=== PATIENT | female | born 1970 | race Caucasian/White ===

== ENCOUNTER 2019-07-27 10:56 | Outpatient (RCR) | payer MEDICAID, SELFPAY ==
--- NOTE | 2019-07-27 12:30 | PTOPEVAL ---
Thank you for referring this patient to [facility]. Please review, sign, date and return this plan of care JEREMIAH. I agree with and certify that the following plan of care is medically necessary. Referring Physician Date Admitting Provider: Attending Provider: Kyrie Goldsmith, Referring Provider: *PT Outpatient Evaluation Start: 07/27/19 11:13 Freq: Status: Active Protocol: Document 07/27/19 11:13 [facility]IN[facility] (Rec: 07/27/19 12:23 [email or web address] [id number]) Therapy Assessment Status Assessment Status Assessment Status Evaluation Evaluation Information Problem Diagnosis thoracic back pain Onset 09/19/18 Subjective Information Pt. reports she developed mid Query Text:As Reported By Patient/ back pain in sep. She reports Family that no paritcular incident started her pain. She describes pain from mid back to the tailbone. She states that she has hx of generalized pain throughout her body. She is uncertain of her goal for therapy at this time. Prior Level of Function Activity Level (Last 3 Months) Hand Dominance Right Activity of Daily Living Ability Independent Indoor/Home Mobility Independent Community Mobility Needs Some Help Stairs Ability Independent Functional Cognition (Planning, Shopping Independent , Taking Medications) Cooking Yes Cleaning Yes Laundry Yes Shopping Yes Driving No Medications Home Meds (Include: OTC, RX, Vitamins, gabapentin Herbals, Dose, Route,and Frequency) Query Text:Home Med Entries Will No Longer Recall From Past Visits. Home Meds Must Be Re-entered With Each Visit. Comments Additional Prior Level of Function Pt. reports pain has gotten Comments worse as of recently. she reports that she is currently using a cane for ambulation. Pain Assessment Timing of Pain Assessment Timing of Pain Assessment Pre-Treatment Pain Scale Pain Scale Used Numeric (1 - 10) Self Report Pain Assessment Upper Back Reported Pain Level 7 Current Pain Intensity 7 Lowest Pain Intensity 6 Greatest Pain Intensity 10 Other Pain Aggravating Factors pt. recalls nothing particular . Pain Behaviors Grimacing,Restless Pain Relief Interventions Used By Joleen
--- NOTE | 2019-08-21 15:45 | PCPTNOTE ---
08/21/19- pt cancelled apt on 08/20/19 secondary to illness. -.
--- NOTE | 2019-09-17 13:40 | PCPTNOTE ---
09/17/19- pt cancelled apt for today.-.
== END 2019-10-01 18:54 | disposition home or self-care (01) ==
LOC: CHSPT 10:56
PROVIDERS: PCP Family Medicine; Visit Provider Family Medicine
DX: M54.6 Pain in thoracic spine (principal)
CPT/HCPCS: 97014; 97110; 97162; 97530; G0283

== ENCOUNTER 2020-02-10 11:39 | Outpatient (CLI) | payer MEDICAID, SELFPAY ==
[2020-02-10 12:56] LABS: Iron 13 ug/dL (50-170); Percent Iron Saturation 3 % (12-57)
== END 2020-02-10 11:40 | disposition home or self-care (01) ==
LOC: CHSLAB 11:41
PROVIDERS: PCP Family Medicine; Visit Provider Family Medicine
DX: D50.9 Iron deficiency anemia, unspecified (principal)
CPT/HCPCS: 36415; 83540; 83550

== ENCOUNTER 2020-02-15 09:01 | Outpatient (RCR) | payer MEDICAID, SELFPAY ==
--- NOTE | 2020-02-26 12:31 | PTOPEVAL ---
Thank you for referring Layne Padilla to [facility]. Please review, sign, date and return this plan of care JEREMIAH. I agree with and certify that the following plan of care is medically necessary. Referring Physician Date Admitting Provider: Attending Provider: Meño Nguyen, MD Referring Provider: *PT Outpatient Evaluation Start: 02/15/20 09:06 Freq: Status: Active Protocol: Document 02/15/20 09:10 [facility] (Rec: 02/15/20 10:08 [facility] [id number]) Therapy Assessment Status Assessment Status Assessment Status Evaluation Outpatient Past Medical History Respiratory History Hx Asthma Yes Gastrointestinal History Hx Gastroesophageal Reflux Disease Yes Musculoskeletal History Hx Fibromyalgia Yes Evaluation Information Problem Diagnosis fibromyalgia Onset 02/09/20 Additional Evaluation Detail NDI = 72% Subjective Information patient reports she is having Query Text:As Reported By Patient/ pain in the neck. she reports Family she is getting dizzy, having headaches, and experiencing ringing in the ears. she reports she has been having these issues off and on last year, and then began having more problems earlier this year. she reports she gets immediate heaches if she leans her head backwards. she reports she has constant pain in the neck. she reports no ntb in the arms. she reports she has worsening symptoms with looking up or down. she reports she is on new pain meds. Prior Level of Function Comments Additional Prior Level of Function prior to all of her pain and Comments symptoms beginning, she reports she was able to draw and play with her grand child. Pain Assessment Timing of Pain Assessment Timing of Pain Assessment Assessment Pain Scale Pain Scale Used Numeric (1 - 10) Self Report Pain Assessment Neck Reported Pain Level 6 Pain Description Aching,Burning,Stabbing, Throbbing Pain Frequency Chronic,Continuous Lowest Pain Intensity 6 Greatest Pain Intensity 10 Pain Score Pain Score 6: Self Report Additional Pain Score Comments patient reports she is
--- NOTE | 2020-04-11 16:52 | PTOPEVAL ---
Thank you for referring Layne Padilla to [facility].? The patient is scheduled to be seen for therapy? ____x/week for ___ weeks. Please review, sign, date and return this plan of care JEREMIAH. I agree with and certify that the following plan of care is medically necessary. Referring Physician Date Admitting Provider: Attending Provider: Meño Nguyen, MD Referring Provider: *PT Outpatient Evaluation Start: 02/15/20 09:06 Freq: Status: Active Protocol: Document 04/11/20 16:12 [facility]IN[facility] (Rec: 04/11/20 16:52 [facility] [id number]) Therapy Assessment Status Assessment Status Assessment Status Re-evaluation Outpatient Past Medical History Respiratory History Hx Asthma Yes Gastrointestinal History Hx Gastroesophageal Reflux Disease Yes Musculoskeletal History Hx Fibromyalgia Yes Evaluation Information Problem Subjective Information Pt. reports she has been Query Text:As Reported By Patient/ unable to attend therapy due Family to covid. She reports that she has less dizziness since beginning therpay, but continues to describe pain in her back and neck. She states that she has been exercising at home, but noted more progress while attending therapy. Pain Assessment Pain Scale Pain Scale Used Numeric (1 - 10) Self Report Pain Assessment Neck Reported Pain Level 5 Pain Score Pain Score 5: Self Report Cervical and Lumbar ROM Cervical ROM Cervical Flexion (0-60) 56 Query Text:Active in Degrees Cervical Extension (0-70) 46 Query Text:Active in Degrees Cervical Lateral Flexion Right (0-50) 23 Query Text:Active in Degrees Cervical Lateral Flexion Left (0-50) 22 Query Text:Active in Degrees Cervical Rotation Right (0-90) 54 Query Text:Active in Degrees Cervical Rotation Left (0-90) 55 Query Text:Active in Degrees Cervical and Lumbar Muscle Testing Cervical Muscle Testing Cervical Flexion 4-Good- Cervical Extension 3 Fair Cervical Lateral Flexion Right 3+Fair+ Cervical Lateral Flexion Left 3+Fair+ Cervical Rotation Left 3+Fair+ Cervical Rotation Right 3+Fair+ Upper Extremity Muscle Strength Testing Scapular/Shoulder Bilateral Scapular Retraction - Middle Trapezius 3+ Fair + Scapular Retraction - Lower Trapezius 3 Fair Shoulder Flexion Strength 4- Good - Shoulder Extension Strength 4 Good Shoulder Abduction Strength 3+ Fair + Shoulder Lateral Rotation Strength 3+ Fair + Palpation Assessment Pa
--- NOTE | 2020-04-19 13:10 | PCPTNOTE ---
patient called and cancelled appt for today. SARAH
--- NOTE | 2020-04-28 16:44 | PCPTNOTE ---
patient cancelled appt today due to babysitting and not being able to get away. SARAH
== END 2020-05-12 08:46 | disposition home or self-care (01) ==
LOC: CHSPT 09:01
PROVIDERS: PCP Family Medicine; Visit Provider Internal Medicine Rheumatology
DX: M79.7 Fibromyalgia (principal)
CPT/HCPCS: 97014; 97110; 97161; G0283

== ENCOUNTER 2020-03-07 15:24 | Outpatient (CLI) | payer MEDICAID, SELFPAY ==
[2020-03-07 15:44] LABS: Basophils Absolute Auto 0.05 K/mm3 (0.00-0.10); Basophils Percent Auto 0.7 % (0.0-1.0); Eosinophils Absolute Auto 0.24 K/mm3 (0.02-0.50); Eosinophils Percent Auto 3.2 % (1.0-6.0); Hematocrit 35.3 % (35.0-49.0); Hemoglobin 10.3 g/dL (12.0-15.0); Immature Granulocyte Absolute 0.02 K/mm3 (0.00-0.00); Immature Granulocyte Percent A 0.3 % (0.0-0.0); Lymphocytes Absolute Auto 2.62 K/mm3 (1.10-4.50); Lymphocytes Percent Auto 34.7 % (18.0-42.0); Mean Corpuscular HGB Conc 29.2 g/dL (32.0-36.0); Mean Corpuscular Hemoglobin 19.8 pg (27.0-31.0); Mean Corpuscular Volume 67.8 fL (78.0-102.0); Mean Platelet Volume 9.5 fl (9.2-11.8); Monocytes Absolute Auto 0.67 K/mm3 (0.10-0.90); Monocytes Percent Auto 8.9 % (2.0-11.0); Neutrophils Percent Auto 52.2 % (50.0-70.0); Platelet Count Result 369 K/mm3 (150-420); Red Blood Count 5.21 M/mm3 (4.20-5.40); Red Cell Distribution Width 26.5 % (11.6-14.4); White Blood Count 7.6 K/mm3 (4.8-10.8)
== END 2020-03-07 15:25 | disposition home or self-care (01) ==
LOC: CHSLAB 15:25
PROVIDERS: PCP Family Medicine; Visit Provider Family Medicine
DX: D50.9 Iron deficiency anemia, unspecified (principal)
CPT/HCPCS: 36415; 85025

== ENCOUNTER 2020-03-23 15:57 | Outpatient (CLI) | payer MEDICAID, SELFPAY ==
[2020-03-23 16:44] LABS: Iron 28 ug/dL (50-170); Percent Iron Saturation 6 % (12-57)
== END 2020-03-23 15:58 | disposition home or self-care (01) ==
LOC: CHSLAB 15:59
PROVIDERS: PCP Family Medicine; Visit Provider Family Medicine
DX: D50.9 Iron deficiency anemia, unspecified (principal)
CPT/HCPCS: 36415; 83540; 83550

== ENCOUNTER 2020-04-13 10:58 | Outpatient (CLI) | payer MEDICAID, SELFPAY ==
[2020-04-13 11:08] LABS: Basophils Absolute Auto 0.07 K/mm3 (0.00-0.10); Basophils Percent Auto 0.7 % (0.0-1.0); Eosinophils Absolute Auto 0.48 K/mm3 (0.02-0.50); Eosinophils Percent Auto 4.7 % (1.0-6.0); Hematocrit 33.3 % (35.0-49.0); Immature Granulocyte Absolute 0.03 K/mm3 (0.00-0.00); Immature Granulocyte Percent A 0.3 % (0.0-0.0); Lymphocytes Absolute Auto 3.19 K/mm3 (1.10-4.50); Lymphocytes Percent Auto 31.4 % (18.0-42.0); Mean Corpuscular Hemoglobin 21.5 pg (27.0-31.0); Mean Corpuscular Volume 71.6 fL (78.0-102.0); Monocytes Percent Auto 9.8 % (2.0-11.0); Neutrophils Absolute Auto 5.4 K/mm3 (1.7-7.2); Neutrophils Percent Auto 53.1 % (50.0-70.0); Platelet Count Result 336 K/mm3 (150-420); Red Blood Count 4.65 M/mm3 (4.20-5.40); Red Cell Distribution Width 25.6 % (11.6-14.4); White Blood Count 10.2 K/mm3 (4.8-10.8)
[2020-04-13 11:58] LABS: Iron 20 ug/dL (50-170); Percent Iron Saturation 5 % (12-57)
== END 2020-04-13 10:59 | disposition home or self-care (01) ==
LOC: CHSLAB 11:00
PROVIDERS: PCP Family Medicine; Visit Provider Family Medicine
DX: D50.9 Iron deficiency anemia, unspecified (principal)
CPT/HCPCS: 36415; 83540; 83550; 85025

== ENCOUNTER 2020-08-17 11:35 | Outpatient (CLI) | payer MEDICAID, SELFPAY ==
--- NOTE | ~2020-08-17 | XR_ITS ---
XR foot RT min 3V DATE: 08/17/2020 12:03 INDICATION: Right foot pain following a fall TECHNIQUE: 4 views COMPARISON: 04/16/2017 right foot FINDINGS: There is moderate plantar and posterior calcaneal enthesopathy. No fracture or dislocation, periosteal reaction or bone destruction is detected. IMPRESSION: Calcaneal enthesopathy No recent fracture or dislocation Reviewed, dictated and finalized at location A. P[employer] DELIV[employer]
== END 2020-08-17 11:36 | disposition home or self-care (01) ==
LOC: CHSIMG 11:38
PROVIDERS: PCP Family Medicine; Visit Provider Family Medicine
DX: S99.921A Unspecified injury of right foot, initial encounter (principal)
CPT/HCPCS: 73630

== ENCOUNTER 2021-03-10 15:36 | Emergency (ER) | payer MEDICAID, SELFPAY ==
[2021-03-10 15:40] VITALS: BP 137/87; PULSE 92; RESP 20; TEMP 37.1; O2SAT 97
--- NOTE | 2021-03-10 15:51 | ED.WOUNDLAC ---
HPI - Wound/Laceration General Chief Complaint: Wound/Laceration Stated Complaint: cut face Source: patient and RN notes reviewed Mode of arrival: ambulatory Limitations: no limitations History of Present Illness HPI narrative: Patient states that she was at home just come in from being outdoors. She coughed hard and when she did she bent forward coughing and struck the towel rack with her face. She has a superficial laceration on her right cheek. Onset (ago): minute(s) (10) Location: face Place: home Context: accidental Associated symptoms: pain Treatments prior to arrival: bandage Related Data Home Medications Medication Instructions Recorded Confirmed albuterol sulfate 2.5 mg INHALATION Q4H PRN 08/21/19 03/10/21 albuterol sulfate [ProAir HFA] 2 puff INHALATION QID PRN 08/21/19 03/10/21 budesonide-formoterol [Symbicort] 2 puff INHALATION Q12H 08/21/19 03/10/21 famotidine 20 mg PO BID 08/21/19 03/10/21 gabapentin 900 mg PO TID 08/21/19 03/10/21 sucralfate [Carafate] 1 g PO QID 08/21/19 03/10/21 Allergies Allergy/AdvReac Type Severity Reaction Status Date / Time cefaclor [From Ceclor] Allergy Rash Verified 02/01/20 15:26 diazepam [From Valium] Allergy Agitated Verified 02/01/20 15:26 duloxetine [From Cymbalta] Allergy Rash Verified 02/01/20 15:26 Review of Systems Review of Systems: All systems reviewed & are unremarkable except as noted in HPI and below PMFSH Past Medical History Medical History Asthma Fibromyalgia Finger amputation, no complication GERD (gastroesophageal reflux disease) Glomus tumor Rheumatoid arthritis Exam Const: General: healthy appearing and no acute distress Nutritional Appearance: well nourished and obese Orientation/consciousness: patient oriented x3 HENMT: Head: normal to inspection Ears: external ears normal Face and sinus: normal facial exam Mouth: Yes moist mucous membranes Eyes: Conjunctivae: conjunctivae normal Pupils: Equal, round and reactive pupils present EOM: EOMs intact bilaterally Neck: Neck: normal visual inspection Resp: Effort & Inspection: normal respiratory effort Auscultation: clear to auscultation bilaterally Cardio: Rate: regular rate Rhythm: regular rhythm GI: GI Palp: Yes Soft to palpation and No Tenderness to palpation present (GI) Auscultation: normal bowel sounds Back/Spine/Pelvis: Cervical Spine: cervical ROM normal Thoracic/Lumbar Spine: thoraco-lumbar ROM normal Skin: General skin exam: normal color Rashes: no rashes Wounds: wounds noted laceration right malar region size (2 cm) Neuro: General: patient oriented x3, moves all extremities and no meningeal signs Speech: normal speech Gait exam (Neuro): Normal gait present Extrem: General: normal to inspection and no clubbing, cyanosis or edema Psych: Appearance: grossly normal and well kempt Mental Status: mental status grossly normal Affect: normal affect Attitude: cooperative Thought content: Yes Normal thought content present Course Vital Signs Vital signs: Vital Signs Temperature 37.1 C 03/10/21 15:40 Pulse Rate 92 03/10/21 15:40 Respiratory Rate 20 03/10/21 15:40 Blood Pressure 137/87 03/10/21 15:40 Pulse Oximetry 97 03/10/21 15:40 Temperature 37.1 C 03/10/21 15:40 Pulse Rate 92 03/10/21 15:40 Respiratory Rate 15 03/10/21 16:01 Blood Pressure 137/87 03/10/21 15:40 Pulse Oximetry 99 03/10/21 16:01 Procedures Laceration Laceration 1: Date: 03/10/21 Site: face Side (If applicable): right Size (cm): 2 Description: linear and clean Depth: simple, single layer Pre-repair: wound explored ====== Skin Level ====== Skin layer closed with: dermabond ====== Subcutaneous Layer ====== ====== Muscle Layer ====== ====== Tendon Layer ====== Discharge Plan Discharge Clinical Impression: Laceration
[2021-03-10 16:01] VITALS: RESP 15; O2SAT 99
[2021-03-10] MEDS: TETANUS,DIPHTHERIA,AC PERTUSSIS ADULT 0.5 ML (ADACEL) IM (16:01)
== END 2021-03-10 16:08 | disposition home or self-care (01) ==
PROVIDERS: Emergency Provider Emergency Medicine; PCP Family Medicine
DX: S01.81XA Laceration without foreign body of other part of head, initial encounter (principal); W22.8XXA Striking against or struck by other objects, initial encounter
CPT/HCPCS: 12011; 90471; 90715; 99282

== ENCOUNTER 2021-04-12 07:25 | Outpatient (CLI) | payer MEDICAID, SELFPAY ==
[2021-04-12 07:43] LABS: Basophils Absolute Auto 0.05 K/mm3 (0.00-0.10); Basophils Percent Auto 0.7 % (0.0-1.0); Eosinophils Absolute Auto 0.12 K/mm3 (0.02-0.50); Eosinophils Percent Auto 1.7 % (1.0-6.0); Hematocrit 28.8 % (35.0-49.0); Immature Granulocyte Absolute 0.01 K/mm3 (0.00-0.00); Immature Granulocyte Percent A 0.1 % (0.0-0.0); Lymphocytes Absolute Auto 1.75 K/mm3 (1.10-4.50); Mean Corpuscular HGB Conc 27.8 g/dL (32.0-36.0); Mean Corpuscular Hemoglobin 18.4 pg (27.0-31.0); Mean Corpuscular Volume 66.2 fL (78.0-102.0); Mean Platelet Volume 9.6 fl (9.2-11.8); Monocytes Absolute Auto 0.54 K/mm3 (0.10-0.90); Monocytes Percent Auto 7.7 % (2.0-11.0); Neutrophils Absolute Auto 4.5 K/mm3 (1.7-7.2); Neutrophils Percent Auto 64.8 % (50.0-70.0); Platelet Count Result 319 K/mm3 (150-420); Red Blood Count 4.35 M/mm3 (4.20-5.40); Red Cell Distribution Width 18.5 % (11.6-14.4)
[2021-04-12 08:16] LABS: Rheumatoid Factor Screen Negative (Negative)
[2021-04-12 08:21] LABS: Alanine Aminotransferase 22 U/L (14-59); Albumin Level 3.2 g/dL (3.4-5.0); Alkaline Phosphatase 68 U/L (46-116); Anion Gap 10 mmol/L (8-16); Aspartate Amino Transferase 14 U/L (15-37); Bilirubin,Total 0.2 mg/dL (0.00-1.00); Blood Urea Nitrogen 10 mg/dL (7-18); Calcium 8.7 mg/dL (8.5-10.1); Carbon Dioxide 28 mmol/L (21-32); Chloride 108 mmol/L (98-108); Creatine Kinase 78 U/L (26-192); Estimated Glomerular Filt Rate 59; Glucose 106 mg/dL (70-99); Iron 13 ug/dL (50-170); Magnesium 1.9 mg/dL (1.8-2.4); Osmolality Calculated 301 mOsm/kg (285-295); Percent Iron Saturation 3 % (12-57); Sodium 146 mmol/L (136-145); Total Protein 6.8 g/dL (6.4-8.2)
[2021-04-14 23:50] LABS: Anti Cyclic Citrullinated Pept <16 Units (<20)
== END 2021-04-12 07:26 | disposition home or self-care (01) ==
LOC: CHSLAB 07:29
PROVIDERS: PCP Family Medicine; Visit Provider Internal Medicine Rheumatology
DX: M19.90 Unspecified osteoarthritis, unspecified site (principal); M79.7 Fibromyalgia; D50.9 Iron deficiency anemia, unspecified
CPT/HCPCS: 36415; 80053; 82550; 83540; 83550; 83735; 85025; 86038; 86039; 86200; 86430

== ENCOUNTER 2021-04-19 07:53 | Outpatient (CLI) | payer MEDICAID, SELFPAY ==
[2021-04-22 05:50] LABS: RNP Antibodies <1.0; SS-A <1.0; SS-B <1.0
[2021-04-22 10:58] LABS: Complement C3 112 mg/dL (83-193)
[2021-04-22 14:22] LABS: Complement Total CH50 >60 U/mL (31-60)
[2021-04-24 23:27] LABS: Histone Antibody <1.0 U (<1.0)
== END 2021-04-19 07:54 | disposition home or self-care (01) ==
LOC: CHSLAB 07:55
PROVIDERS: PCP Family Medicine; Visit Provider Internal Medicine Rheumatology
DX: M25.50 Pain in unspecified joint (principal); R76.8 Other specified abnormal immunological findings in serum
CPT/HCPCS: 36415; 83516; 86160; 86162; 86225; 86235

== ENCOUNTER 2021-06-09 13:56 | Outpatient (CLI) | payer MEDICAID, SELFPAY ==
--- NOTE | ~2021-06-09 | US_ITS ---
US retroperitoneal comp 06/09/2021 14:40 Procedure: Realtime transabdominal ultrasound of the kidneys and bladder. Indication: Urinary incontinence. Comparison: No prior studies for comparison. Findings: Renal echotexture is normal bilaterally without hydronephrosis, contour deforming mass or r enal calculus. The right kidney measures 10.5 cm and left kidney measures 9.5 cm. Bladder within nor mal limits. Prevoid volume 79 cc. No post void residual. Impression: 1: Unremarkable renal ultrasound. No stones, masses or hydronephrosis. Reviewed, dictated and finalized at location B. Impression: 1: Unremarkable renal ultrasound. No stones, masses or hydronephrosis.
--- NOTE | ~2021-06-09 | XR_ITS ---
EXAMINATION: XR lumbar spine 2-3V DATE: 06/09/2021 15:06 INDICATION: Low back pain TECHNIQUE: Anteroposterior and lateral views of the lumbar spine, and cone-down lateral view of the l umbosacral junction were obtained. COMPARISON: 02/12/2018 FINDINGS: There is no fracture, dislocation, or subluxation. The vertebral body heights, alignment, a nd intervertebral disc spaces are normal. Small degenerative osteophytes project from the anterior en dplates of multiple vertebral bodies. IMPRESSION: 1. Mild lumbar spondylosis without acute findings. Reviewed, dictated and finalized at location A.
== END 2021-06-09 13:57 | disposition home or self-care (01) ==
LOC: CHSIMG 13:58
PROVIDERS: PCP Family Medicine; Visit Provider Physician Assistant
DX: M54.50 Low back pain, unspecified (principal); R32 Unspecified urinary incontinence
CPT/HCPCS: 72100; 76770

== ENCOUNTER 2021-06-13 09:05 | Outpatient (CLI) | payer MEDICAID, SELFPAY ==
--- NOTE | ~2021-06-13 | MMUS_ITS ---
EXAMINATION: MM diagnostic eun BI w kenyon, US breast RT limited HISTORY: Right breast lump TECHNIQUE: ML, MLO and craniocaudal 3-D tomosynthesis images of both breasts were performed and synth etic 2-D images were generated. Bilateral rotated lateral cc views. CAD analysis was submitted and in terpreted. High resolution targeted right breast ultrasound is clinical complaint was performed. COMPARISON: None BREAST PARENCHYMAL COMPOSITION: There are scattered areas of fibroglandular density. FINDINGS: MAMMOGRAPHIC FINDINGS: No suspicious mass or architectural distortion, malignant calcification, skin thickening or retractio n is detected. ULTRASOUND: Targeted ultrasound was performed at 7:00 15 cm from the nipple near the lateral chest wall with the patient complains of the lungs. No suspicious mass or shadowing is identified. IMPRESSION: 1. No mammographic evidence of malignancy 2. Routine mammographic screening is recommended BI-RADS Category 1: Negative Reviewed, dictated and finalized at location A. IMPRESSION: 1. No mammographic evidence of malignancy 2. Routine mammographic screening is recommended BI-RADS Category 1: Negative
== END 2021-06-13 09:06 | disposition home or self-care (01) ==
LOC: CHSIMG 09:06
PROVIDERS: PCP Family Medicine; Visit Provider Physician Assistant
DX: N64.4 Mastodynia (principal)
CPT/HCPCS: 76642; 77062; 77066; G0279

== ENCOUNTER 2021-06-20 11:17 | Outpatient (CLI) | payer MEDICAID, SELFPAY ==
[2021-06-20 11:35] LABS: Add Urine Microscopic? NO; Appearance Urine Clear (Clear); Basophils Absolute Auto 0.08 K/mm3 (0.00-0.10); Basophils Percent Auto 1.1 % (0.0-1.0); Bilirubin Urine Negative (Negative); Blood Urine Negative (Negative); Color Urine Light Yellow (Yellow); Eosinophils Absolute Auto 0.04 K/mm3 (0.02-0.50); Eosinophils Percent Auto 0.5 % (1.0-6.0); Glucose Urine UA Negative (Negative); Hematocrit 29.4 % (35.0-49.0); Immature Granulocyte Absolute 0.02 K/mm3 (0.00-0.00); Immature Granulocyte Percent A 0.3 % (0.0-0.0); Ketones Urine Negative (Negative); Leukocyte Esterase Ur Negative (Negative); Lymphocytes Absolute Auto 1.92 K/mm3 (1.10-4.50); Lymphocytes Percent Auto 26.4 % (18.0-42.0); Mean Corpuscular HGB Conc 27.2 g/dL (32.0-36.0); Mean Corpuscular Hemoglobin 17.4 pg (27.0-31.0); Mean Corpuscular Volume 63.8 fL (78.0-102.0); Mean Platelet Volume 9.5 fl (9.2-11.8); Monocytes Absolute Auto 0.65 K/mm3 (0.10-0.90); Monocytes Percent Auto 8.9 % (2.0-11.0); Neutrophils Absolute Auto 4.6 K/mm3 (1.7-7.2); Neutrophils Percent Auto 62.8 % (50.0-70.0); Nitrate Urine Negative (Negative); Platelet Count Result 364 K/mm3 (150-420); Protein Urine Negative (Negative); Red Blood Count 4.61 M/mm3 (4.20-5.40); Red Cell Distribution Width 19.3 % (11.6-14.4); Specific Grav Ur <= 1.005 (1.010-1.020); Urobilinogen Urine 0.2 mg/dL (0.2-1.0); White Blood Count 7.3 K/mm3 (4.8-10.8); pH Urine 6.5 (5.0-8.0)
[2021-06-20 12:44] LABS: CRP 1.5 mg/dL (0.0-0.9); Ferritin 4 ng/mL (8-252); Iron 15 ug/dL (50-170); Percent Iron Saturation 3 % (12-57)
[2021-06-23 04:45] LABS: Albumin 3.9 g/dL (3.8-4.8); Alpha 1 Globulin 0.4 g/dL (0.2-0.3); Alpha 2 Globulin 0.9 g/dL (0.5-0.9); Beta 1 Globulin 0.6 g/dL (0.4-0.6); Gamma Globulin 1.4 g/dL (0.8-1.7); Protein, Total 7.6 g/dL (6.1-8.1)
== END 2021-06-20 11:18 | disposition home or self-care (01) ==
LOC: CHSLAB 11:23
PROVIDERS: PCP Family Medicine; Visit Provider Internal Medicine Rheumatology
DX: D64.9 Anemia, unspecified (principal); R76.8 Other specified abnormal immunological findings in serum; M25.50 Pain in unspecified joint
CPT/HCPCS: 36415; 81003; 82728; 83540; 83550; 84155; 84165; 85025; 86140; 86235

== ENCOUNTER 2021-07-27 10:09 | Outpatient (CLI) | payer MEDICAID, SELFPAY ==
[2021-07-27 10:21] LABS: Basophils Absolute Auto 0.06 K/mm3 (0.00-0.10); Eosinophils Absolute Auto 0.21 K/mm3 (0.02-0.50); Eosinophils Percent Auto 3.4 % (1.0-6.0); Hematocrit 31.7 % (35.0-49.0); Hemoglobin 8.6 g/dL (12.0-15.0); Immature Granulocyte Absolute 0.02 K/mm3 (0.00-0.00); Immature Granulocyte Percent A 0.3 % (0.0-0.0); Lymphocytes Absolute Auto 1.85 K/mm3 (1.10-4.50); Lymphocytes Percent Auto 29.6 % (18.0-42.0); Mean Corpuscular HGB Conc 27.1 g/dL (32.0-36.0); Mean Corpuscular Hemoglobin 18.5 pg (27.0-31.0); Mean Corpuscular Volume 68.2 fL (78.0-102.0); Mean Platelet Volume 9.1 fl (9.2-11.8); Monocytes Absolute Auto 0.65 K/mm3 (0.10-0.90); Monocytes Percent Auto 10.4 % (2.0-11.0); Neutrophils Absolute Auto 3.5 K/mm3 (1.7-7.2); Neutrophils Percent Auto 55.3 % (50.0-70.0); Platelet Count Result 368 K/mm3 (150-420); Red Blood Count 4.65 M/mm3 (4.20-5.40); Red Cell Distribution Width 21.9 % (11.6-14.4); White Blood Count 6.3 K/mm3 (4.8-10.8)
[2021-07-27 11:14] LABS: Alanine Aminotransferase 24 U/L (14-59); Albumin Level 3.4 g/dL (3.4-5.0); Alkaline Phosphatase 81 U/L (46-116); Anion Gap 10 mmol/L (8-16); Aspartate Amino Transferase 17 U/L (15-37); Bilirubin,Total 0.2 mg/dL (0.00-1.00); Blood Urea Nitrogen 9 mg/dL (7-18); Calcium 8.9 mg/dL (8.5-10.1); Carbon Dioxide 29 mmol/L (21-32); Chloride 102 mmol/L (98-108); Estimated Glomerular Filt Rate > 60; Glucose 76 mg/dL (70-99); Iron 13 ug/dL (50-170); Osmolality Calculated 289 mOsm/kg (285-295); Percent Iron Saturation 3 % (12-57); Potassium 4.2 mmol/L (3.5-5.1); Sodium 141 mmol/L (136-145); Total Protein 7.6 g/dL (6.4-8.2)
== END 2021-07-27 10:10 | disposition home or self-care (01) ==
LOC: CHSLAB 10:10
PROVIDERS: PCP Family Medicine; Visit Provider Physician Assistant
DX: D50.9 Iron deficiency anemia, unspecified (principal); R30.0 Dysuria
CPT/HCPCS: 36415; 80053; 83540; 83550; 85025; 87086

== ENCOUNTER 2021-08-14 16:54 | Outpatient (CLI) | payer MEDICAID, SELFPAY ==
[2021-08-14 17:10] LABS: Basophils Absolute Auto 0.05 K/mm3 (0.00-0.10); Basophils Percent Auto 0.6 % (0.0-1.0); Eosinophils Absolute Auto 0.39 K/mm3 (0.02-0.50); Eosinophils Percent Auto 4.4 % (1.0-6.0); Hematocrit 30.9 % (35.0-49.0); Hemoglobin 8.4 g/dL (12.0-15.0); Immature Granulocyte Absolute 0.03 K/mm3 (0.00-0.00); Immature Granulocyte Percent A 0.3 % (0.0-0.0); Lymphocytes Absolute Auto 2.26 K/mm3 (1.10-4.50); Lymphocytes Percent Auto 25.3 % (18.0-42.0); Mean Corpuscular HGB Conc 27.2 g/dL (32.0-36.0); Mean Corpuscular Hemoglobin 18.4 pg (27.0-31.0); Mean Corpuscular Volume 67.6 fL (78.0-102.0); Mean Platelet Volume 9.4 fl (9.2-11.8); Monocytes Absolute Auto 0.81 K/mm3 (0.10-0.90); Monocytes Percent Auto 9.1 % (2.0-11.0); Neutrophils Absolute Auto 5.4 K/mm3 (1.7-7.2); Neutrophils Percent Auto 60.3 % (50.0-70.0); Platelet Count Result 355 K/mm3 (150-420); Red Blood Count 4.57 M/mm3 (4.20-5.40); Red Cell Distribution Width 19.9 % (11.6-14.4)
[2021-08-14 18:29] LABS: Ferritin 5 ng/mL (8-252); Iron 11 ug/dL (50-170); Percent Iron Saturation 2 % (12-57)
== END 2021-08-14 16:55 | disposition home or self-care (01) ==
LOC: CHSLAB 16:56
PROVIDERS: PCP Family Medicine; Visit Provider Physician Assistant
DX: D64.9 Anemia, unspecified (principal)
CPT/HCPCS: 36415; 82728; 83540; 83550; 85025

== ENCOUNTER 2021-09-22 10:32 | Outpatient (CLI) | payer MEDICAID, SELFPAY ==
[2021-09-22 10:57] LABS: Basophils Absolute Auto 0.04 K/mm3 (0.00-0.10); Basophils Percent Auto 0.6 % (0.0-1.0); Eosinophils Percent Auto 1.6 % (1.0-6.0); Hematocrit 25.8 % (35.0-49.0); Hemoglobin 7.1 g/dL (12.0-15.0); Immature Granulocyte Absolute 0.02 K/mm3 (0.00-0.00); Immature Granulocyte Percent A 0.3 % (0.0-0.0); Lymphocytes Absolute Auto 1.74 K/mm3 (1.10-4.50); Lymphocytes Percent Auto 28.2 % (18.0-42.0); Mean Corpuscular HGB Conc 27.5 g/dL (32.0-36.0); Mean Corpuscular Hemoglobin 17.8 pg (27.0-31.0); Mean Corpuscular Volume 64.7 fL (78.0-102.0); Mean Platelet Volume 9.6 fl (9.2-11.8); Monocytes Absolute Auto 0.66 K/mm3 (0.10-0.90); Monocytes Percent Auto 10.7 % (2.0-11.0); Neutrophils Absolute Auto 3.6 K/mm3 (1.7-7.2); Neutrophils Percent Auto 58.6 % (50.0-70.0); Platelet Count Result 335 K/mm3 (150-420); Red Blood Count 3.99 M/mm3 (4.20-5.40); Red Cell Distribution Width 17.5 % (11.6-14.4); White Blood Count 6.2 K/mm3 (4.8-10.8)
[2021-09-22 12:19] LABS: Ferritin 3 ng/mL (8-252); Iron 10 ug/dL (50-170)
== END 2021-09-22 10:33 | disposition home or self-care (01) ==
LOC: CHSLAB 10:43
PROVIDERS: PCP Family Medicine; Visit Provider Family Medicine
DX: D50.9 Iron deficiency anemia, unspecified (principal)
CPT/HCPCS: 36415; 82728; 83540; 85025

== ENCOUNTER 2021-10-03 15:35 | Outpatient (CLI) | payer MEDICAID, SELFPAY ==
[2021-10-03 15:55] LABS: Basophils Absolute Auto 0.07 K/mm3 (0.00-0.10); Basophils Percent Auto 0.9 % (0.0-1.0); Eosinophils Absolute Auto 0.11 K/mm3 (0.02-0.50); Eosinophils Percent Auto 1.4 % (1.0-6.0); Hemoglobin 7.2 g/dL (12.0-15.0); Immature Granulocyte Absolute 0.03 K/mm3 (0.00-0.00); Immature Granulocyte Percent A 0.4 % (0.0-0.0); Lymphocytes Absolute Auto 1.88 K/mm3 (1.10-4.50); Lymphocytes Percent Auto 24.1 % (18.0-42.0); Mean Corpuscular HGB Conc 26.7 g/dL (32.0-36.0); Mean Corpuscular Hemoglobin 17.2 pg (27.0-31.0); Mean Corpuscular Volume 64.4 fL (78.0-102.0); Mean Platelet Volume 9.7 fl (9.2-11.8); Monocytes Absolute Auto 0.85 K/mm3 (0.10-0.90); Monocytes Percent Auto 10.9 % (2.0-11.0); Neutrophils Absolute Auto 4.9 K/mm3 (1.7-7.2); Neutrophils Percent Auto 62.3 % (50.0-70.0); Platelet Count Result 354 K/mm3 (150-420); Red Blood Count 4.19 M/mm3 (4.20-5.40); Red Cell Distribution Width 17.7 % (11.6-14.4); White Blood Count 7.8 K/mm3 (4.8-10.8)
== END 2021-10-03 15:36 | disposition home or self-care (01) ==
LOC: CHSLAB 15:37
PROVIDERS: PCP Family Medicine; Visit Provider Family Medicine
DX: D50.9 Iron deficiency anemia, unspecified (principal)
CPT/HCPCS: 36415; 85025

== ENCOUNTER 2021-12-02 09:07 | Outpatient (CLI) | payer MEDICAID, SELFPAY ==
--- NOTE | ~2021-12-02 | MR_ITS ---
EXAMINATION: MR brain/brain stem wo con DATE: 12/02/2021 09:53 INDICATION: Headache. TECHNIQUE: Multisequence magnetic resonance imaging (MRI) of the brain and brainstem was performed wi thout intravenous contrast. COMPARISON: Brain MRI 02/11/2019 FINDINGS: There are scattered areas of nonspecific increased T2-weighted signal intensity in the cere bral white matter. The pituitary is normal in size. There is no intracranial hemorrhage, acute infarc tion, or abnormal intracranial mass lesion. The ventricles are normal in size. The orbits are normal. There is mild mucosal thickening in the paranasal sinuses. The mastoid air cells are normal. IMPRESSION: 1. Worsened mild nonspecific cerebral white matter disease, which likely represents chronic small ves alberto ischemic disease. Reviewed, dictated and finalized at location A. IMPRESSION: 1. Worsened mild nonspecific cerebral white matter disease, which likely repres ents chronic small vessel ischemic disease.
[2021-12-02 09:58] LABS: Basophils Absolute Auto 0.05 K/mm3 (0.00-0.10); Basophils Percent Auto 0.8 % (0.0-1.0); Eosinophils Absolute Auto 0.01 K/mm3 (0.02-0.50); Eosinophils Percent Auto 0.2 % (1.0-6.0); Hematocrit 31.1 % (35.0-49.0); Hemoglobin 8.4 g/dL (12.0-15.0); Immature Granulocyte Absolute 0.02 K/mm3 (0.00-0.00); Immature Granulocyte Percent A 0.3 % (0.0-0.0); Lymphocytes Absolute Auto 1.49 K/mm3 (1.10-4.50); Mean Corpuscular Hemoglobin 18.4 pg (27.0-31.0); Mean Corpuscular Volume 68.2 fL (78.0-102.0); Monocytes Absolute Auto 0.62 K/mm3 (0.10-0.90); Monocytes Percent Auto 10.4 % (2.0-11.0); Neutrophils Absolute Auto 3.8 K/mm3 (1.7-7.2); Neutrophils Percent Auto 63.3 % (50.0-70.0); Platelet Count Result 358 K/mm3 (150-420); Red Blood Count 4.56 M/mm3 (4.20-5.40); Red Cell Distribution Width 23.3 % (11.6-14.4)
[2021-12-02 10:58] LABS: Folic Acid 5.3 ng/mL (8.6->20); Iron 14 ug/dL (50-170); Percent Iron Saturation 3 % (12-57); Vitamin B12 627 pg/mL (193-986)
== END 2021-12-02 09:08 | disposition home or self-care (01) ==
PROVIDERS: PCP Family Medicine; Visit Provider Family Medicine
DX: D50.9 Iron deficiency anemia, unspecified (principal); R51.9 Headache, unspecified
CPT/HCPCS: 36415; 70551; 82607; 82746; 83540; 83550; 85025

== ENCOUNTER 2022-01-24 14:51 | Emergency (ER) | payer MEDICAID, SELFPAY ==
--- NOTE | ~2022-01-24 | XR_ITS ---
EXAM: XR foot RT min 3V DATE: 01/24/2022 15:20 HISTORY: all over RT foot pain after kicked a concrete block . COMPARISON: 08/17/2020. FINDINGS: Normal mineralization. No fracture or dislocation. No lytic or blastic lesion. Degenerativ e midfoot and first MTP changes. Plantar and Achilles enthesopathy. No erosion or periosteal change. Soft tissues within normal limits. IMPRESSION: No acute osseous finding in the right foot. Reviewed, dictated and finalized at location K.
[2022-01-24 15:00] VITALS: BP 119/94; PULSE 100; RESP 18; TEMP 36.3; O2SAT 100
[2022-01-24 15:01] VITALS: BP 119/94; PULSE 98; TEMP 36.3; O2SAT 100
--- NOTE | 2022-01-24 15:08 | ED.LOWEXIN ---
HPI - Extremity Injury (Lower) General Chief Complaint: Extremity Injury, Lower Stated Complaint: RT Foot injury-pain and numbness Time Seen by Provider: 01/24/22 15:00 Source: patient and RN notes reviewed Mode of arrival: ambulatory Limitations: no limitations History of Present Illness HPI Narrative: patient states that she was walking to her neighbor's house yesterday and tripped and hit her right foot against a concrete block. She says that it hurts to walk on and sometimes has some feelings of numbness and tingling in her toes. complaint: foot injury Onset (ago): day(s) (1) Injury: Right: foot Type of Injury: blunt Place: street/outdoors Severity: moderate Relieving factors: rest Exacerbating factors: weight bearing Context: direct blow and walking Associated symptoms: numbness, tingling and able to partially bear weight Other symptoms: none Treatments prior to arrival: cold therapy Related Data Home Medications Medication Instructions Recorded Confirmed albuterol sulfate 2.5 mg/3 mL 2.5 mg inhalation Q4H PRN 08/21/19 01/24/22 (0.083 %) solution for nebulization Shortness Of Breath albuterol sulfate 90 mcg/actuation 2 puff inhalation QID PRN 08/21/19 01/24/22 aerosol inhaler (ProAir HFA) Shortness Of Breath budesonide-formoterol HFA 160 2 puff inhalation Q12H 08/21/19 01/24/22 mcg-4.5 mcg/actuation aerosol inhaler (Symbicort) famotidine 20 mg tablet 20 mg PO BID 08/21/19 01/24/22 gabapentin 300 mg capsule 900 mg PO TID 08/21/19 01/24/22 sucralfate 1 gram tablet (Carafate) 1 g PO QID 08/21/19 01/24/22 Allergies Allergy/AdvReac Type Severity Reaction Status Date / Time cefaclor [From Ceclor] Allergy Rash Verified 01/24/22 15:13 diazepam [From Valium] Allergy Agitated Verified 01/24/22 15:13 duloxetine [From Cymbalta] Allergy Rash Verified 01/24/22 15:13 Review of Systems Review of Systems: All systems reviewed & are unremarkable except as noted in HPI and below PMFSH Past Medical History Medical History Asthma Fibromyalgia Finger amputation, no complication GERD (gastroesophageal reflux disease) Glomus tumor Rheumatoid arthritis Exam Const: General: healthy appearing, no acute distress and alert Nutritional Appearance: well nourished and obese Orientation/consciousness: patient oriented x3 Limitations: no limitations HENMT: Head: normal to inspection Ears: external ears normal Eyes: Conjunctivae: conjunctivae normal Pupils: Equal, round and reactive pupils present EOM: EOMs intact bilaterally Neck: Neck: normal visual inspection Resp: Effort & Inspection: normal respiratory effort Auscultation: clear to auscultation bilaterally Cardio: Rate: regular rate Rhythm: regular rhythm GI: GI Palp: Yes Soft to palpation Auscultation: normal bowel sounds Back/Spine/Pelvis: Cervical Spine: cervical ROM normal Thoracic/Lumbar Spine: thoraco-lumbar ROM normal Skin: General skin exam: normal color Rashes: no rashes Wounds: no wounds Neuro: General: patient oriented x3, moves all extremities, no focal motor deficits and CN's II-XI intact bilaterally Speech: normal speech Gait exam (Neuro): Normal gait present ( limping gait) Extrem: General: normal exam except as noted Right lower extremity: foot Details: normal capillary refill, tenderness Location: of the dorsal foot Location: medially, toes with normal ROM and vascular exam Details: normal capillary refill; no crepitus Psych: Mental Status: mental status grossly normal Affect: normal affect Attitude: cooperative Course Course Emergency Course: I offered patient a Johnny wrap and she declined also offered injection Toradol for pain and she declined. Vital Signs Vital signs: Vital Signs Temperature 36.3 C L 01/24/22 15:00 Pulse Rate 100 01/24/22 15:00 Respiratory Rate 18 01/24/22 15:00 Blood Pressure 119/94 H 01/24/22 15:00 Pulse Oximetry 100 01/24/22 15
[2022-01-24 15:59] VITALS: BP 124/80; PULSE 98; RESP 20; O2SAT 97
== END 2022-01-24 16:01 | disposition home or self-care (01) ==
PROVIDERS: Emergency Provider Emergency Medicine; PCP Family Medicine
DX: S90.31XA Contusion of right foot, initial encounter (principal); W22.8XXA Striking against or struck by other objects, initial encounter
CPT/HCPCS: 73630; 99283

== ENCOUNTER 2022-02-21 14:13 | Outpatient (CLI) | payer MEDICAID, SELFPAY ==
--- NOTE | ~2022-02-21 | XR_ITS ---
EXAMINATION: XR lumbar spine 2-3V DATE: 02/21/2022 14:37 INDICATION: Low back pain TECHNIQUE: Anteroposterior and lateral views of the lumbar spine, and cone-down lateral view of the l umbosacral junction were obtained. COMPARISON: 06/09/2021 FINDINGS: There is no fracture, dislocation, or subluxation. The vertebral body heights, alignment, a nd intervertebral disc spaces are normal. Small degenerative osteophytes project from the anterior en dplates of multiple vertebral bodies. IMPRESSION: 1. Mild lumbar spondylosis without acute findings or significant interval change. Reviewed, dictated and finalized at location B. IMPRESSION: 1. Mild lumbar spondylosis without acute findings or significant interval ana erazo
== END 2022-02-21 14:14 | disposition home or self-care (01) ==
LOC: CHSIMG 14:16
PROVIDERS: PCP Family Medicine; Visit Provider Family Medicine
DX: M54.50 Low back pain, unspecified (principal)
CPT/HCPCS: 72100

== ENCOUNTER 2022-05-02 08:06 | Outpatient (RCR) | payer MEDICAID, SELFPAY ==
--- NOTE | 2022-05-02 09:09 | PTOPEVAL1 ---
Assessment and note entered by Hue Ham DPT Evaluation Information Assessment Status Evaluation Diagnosis Low back pain Onset 05/01/2022 Subjective Information Pt reports that her R-sided back pain has been going on for most of her life. She reports that she has a curve in her back that she's had since she was younger. She saw an MD who wants to try PT first before a more current MRI. She reports she is frustrated as she feels that she has been dealing with this for a long time and feels no one has been looking too in-depth into her back. She reports she might be looking into a back brace soon. She reports pain waxes and wanes but feels like pain is worsening over time. She cannot think of any specific movements that make pain worse or better. She walks frequently and does exercises still. She reports sleep is greatly affected. She reports she is able to do everything that she usually does but just might have to be slower. She reports that she feels she needs a rest from activities after about 20-30 minutes. She does report some bowel/bladder changes over the last few years as she feels like she cannot control. She does get some numbness/tingling in her R foot occasionally. She reports muscle cramps in her legs. She reports occasional falls due to weakness and ankle pain. She likes to cook and bought a standing desk that she can adjust the height to still cook. Reported Pain Level Pain Score 4: Self Report Assessment PT Clinical Summary Pt presents to physical therapy with elevated/ heightened pain in her low back and demonstrates decreased strength, decreased mobility, antalgic gait, and altered posture. 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 She was provided with an HEP focused on improving mobility and strength within her tolerance. She will benefit from skilled PT to faciliate symptom relief, improve the aforementioned impairments, and return to functional and recreational activities. Plan of Care Interventions Electrical Stimulation,Hot Pack/Cold Pack,Manual Therapy,Neuro Re-education,Patient/Caregiver Educati,Therapeutic Activities,Therapeutic Ex
== END 2022-05-29 13:51 | disposition home or self-care (01) ==
LOC: CHSPT 08:06
PROVIDERS: PCP Family Medicine; Visit Provider Family Medicine
DX: M54.50 Low back pain, unspecified (principal)
CPT/HCPCS: 97110; 97140; 97161

== ENCOUNTER 2022-06-29 13:52 | Outpatient (CLI) | payer MEDICAID, SELFPAY ==
--- NOTE | ~2022-06-29 | MR_ITS ---
EXAMINATION: MR lumbar spine wo con DATE: 06/29/2022 15:22 INDICATION: Chronic low back pain. TECHNIQUE: Magnetic resonance imaging (MRI) of the lumbar spine was performed without intravenous con trast. Sequences included sagittal T2-weighted FSE, sagittal T2-weighted FS FSE, sagittal T1-weighted FSE, and axial T2-weighted FSE. COMPARISON: Lumbar spine radiographs 02/21/22 FINDINGS: Bone alignment is normal. Vertebral body heights and intervertebral disc heights are normal . The distal spinal cord signal intensity is normal. The conus medullaris is at L1-L2. The following disc levels are specifically discussed: L1-L2: The disc does not extend beyond the endplate margin. There is no facet joint osteoarthritis. T here is no neural foraminal stenosis. There is no central canal stenosis. L2-L3: The disc does not extend beyond the endplate margin. There is mild bilateral facet joint osteo arthritis. There is no neural foraminal stenosis. There is no central canal stenosis. L3-L4: The disc does not extend beyond the endplate margin. There is mild bilateral facet joint osteo arthritis. There is no neural foraminal stenosis. There is no central canal stenosis. L4-L5: The disc does not extend beyond the endplate margin. There is mild bilateral facet joint osteo arthritis. There is no neural foraminal stenosis. There is no central canal stenosis. L5-S1: The disc does not extend beyond the endplate margin. There is mild bilateral facet joint osteo arthritis. There is mild right neural foraminal stenosis. There is no central canal stenosis. IMPRESSION: 1. Mild lumbar spondylosis. Reviewed, dictated and finalized at location A. PT DEVELOPER IMPRESSION: 1. Mild lumbar spondylosis.
== END 2022-06-29 13:53 | disposition home or self-care (01) ==
LOC: CHSIMG 13:53
PROVIDERS: PCP Family Medicine; Visit Provider Family Medicine
DX: M54.50 Low back pain, unspecified (principal)
CPT/HCPCS: 72148

== ENCOUNTER 2022-09-20 16:40 | Outpatient (CLI) | payer MEDICARE, MEDICAID, SELFPAY ==
[2022-09-20 16:59] LABS: Basophils Absolute Auto 0.04 K/mm3 (0.00-0.10); Basophils Percent Auto 0.5 % (0.0-1.0); Eosinophils Absolute Auto 0.04 K/mm3 (0.02-0.50); Eosinophils Percent Auto 0.5 % (1.0-6.0); Hematocrit 42.1 % (35.0-49.0); Hemoglobin 14.1 g/dL (12.0-15.0); Immature Granulocyte Absolute 0.03 K/mm3 (0.00-0.00); Immature Granulocyte Percent A 0.4 % (0.0-0.0); Lymphocytes Absolute Auto 2.04 K/mm3 (1.10-4.50); Lymphocytes Percent Auto 26.6 % (18.0-42.0); Mean Corpuscular HGB Conc 33.5 g/dL (32.0-36.0); Mean Corpuscular Hemoglobin 29.9 pg (27.0-31.0); Mean Corpuscular Volume 89.2 fL (78.0-102.0); Mean Platelet Volume 9.7 fl (9.2-11.8); Monocytes Absolute Auto 0.76 K/mm3 (0.10-0.90); Monocytes Percent Auto 9.9 % (2.0-11.0); Neutrophils Absolute Auto 4.8 K/mm3 (1.7-7.2); Neutrophils Percent Auto 62.1 % (50.0-70.0); Platelet Count Result 241 K/mm3 (150-420); Red Blood Count 4.72 M/mm3 (4.20-5.40); Red Cell Distribution Width 12.1 % (11.6-14.4); White Blood Count 7.7 K/mm3 (4.8-10.8)
[2022-09-20 17:28] LABS: Albumin Level 3.7 g/dL (3.4-5.0); Anion Gap 7 mmol/L (8-16); Blood Urea Nitrogen 12 mg/dL (7-18); Carbon Dioxide 32 mmol/L (21-32); Chloride 104 mmol/L (98-108); Estimated Glomerular Filt Rate > 60; Glucose 93 mg/dL (70-99); Osmolality Calculated 295 mOsm/kg (285-295); Phosphorus 6.2 mg/dL (2.6-4.7); Potassium 4.1 mmol/L (3.5-5.1); Sodium 143 mmol/L (136-145)
== END 2022-09-20 16:41 | disposition home or self-care (01) ==
LOC: CHSLAB 16:45
PROVIDERS: PCP Family Medicine; Visit Provider Family Medicine
DX: R60.9 Edema, unspecified (principal)
CPT/HCPCS: 36415; 80069; 85025

== ENCOUNTER 2023-04-16 12:25 | Outpatient (CLI) | payer MEDICARE, SELFPAY ==
[2023-04-16 12:43] LABS: Basophils Absolute Auto 0.04 K/mm3 (0.00-0.10); Basophils Percent Auto 0.6 % (0.0-1.0); Eosinophils Absolute Auto 0.13 K/mm3 (0.02-0.50); Eosinophils Percent Auto 1.9 % (1.0-6.0); Hematocrit 25.5 % (35.0-49.0); Hemoglobin 7.3 g/dL (12.0-15.0); Immature Granulocyte Absolute 0.03 K/mm3 (0.00-0.00); Immature Granulocyte Percent A 0.4 % (0.0-0.0); Lymphocytes Absolute Auto 1.64 K/mm3 (1.10-4.50); Lymphocytes Percent Auto 24.1 % (18.0-42.0); Mean Corpuscular HGB Conc 28.6 g/dL (32.0-36.0); Mean Corpuscular Hemoglobin 20.2 pg (27.0-31.0); Mean Corpuscular Volume 70.4 fL (78.0-102.0); Mean Platelet Volume 9.4 fl (9.2-11.8); Monocytes Absolute Auto 0.66 K/mm3 (0.10-0.90); Monocytes Percent Auto 9.7 % (2.0-11.0); Neutrophils Absolute Auto 4.3 K/mm3 (1.7-7.2); Neutrophils Percent Auto 63.3 % (50.0-70.0); Platelet Count Result 275 K/mm3 (150-420); Red Blood Count 3.62 M/mm3 (4.20-5.40); Red Cell Distribution Width 16.9 % (11.6-14.4); White Blood Count 6.8 K/mm3 (4.8-10.8)
[2023-04-16 13:34] LABS: Hemoglobin A1C 5.7 % (<5.7)
[2023-04-16 13:37] LABS: Alanine Aminotransferase 28 U/L (14-59); Albumin Level 3.2 g/dL (3.4-5.0); Alkaline Phosphatase 70 U/L (46-116); Anion Gap 6 mmol/L (8-16); Aspartate Amino Transferase 14 U/L (15-37); Bilirubin,Total 0.2 mg/dL (0.00-1.00); Blood Urea Nitrogen 11 mg/dL (7-18); Calcium 8.9 mg/dL (8.5-10.1); Carbon Dioxide 32 mmol/L (21-32); Chloride 103 mmol/L (98-108); Cholesterol 151 mg/dL (0-200); Estimated Glomerular Filt Rate > 60; Glucose 99 mg/dL (70-99); HDL Direct 44 mg/dL (40-60); Iron 15 ug/dL (50-170); LDL Cholesterol Calculated 92 mg/dL (<130); Osmolality Calculated 291 mOsm/kg (285-295); Percent Iron Saturation 4 % (12-57); Sodium 141 mmol/L (136-145); Total Protein 6.6 g/dL (6.4-8.2); Triglycerides 74 mg/dL (0-150)
== END 2023-04-16 12:26 | disposition home or self-care (01) ==
PROVIDERS: PCP Family Medicine; Visit Provider Family Medicine
DX: D50.9 Iron deficiency anemia, unspecified (principal); E78.5 Hyperlipidemia, unspecified; R73.01 Impaired fasting glucose
CPT/HCPCS: 36415; 80053; 80061; 83036; 83540; 83550; 85025

== ENCOUNTER 2023-05-21 07:50 | Outpatient (CLI) | payer MEDICARE, SELFPAY ==
[2023-05-21 08:12] LABS: Basophils Absolute Auto 0.06 K/mm3 (0.00-0.10); Basophils Percent Auto 1.1 % (0.0-1.0); Eosinophils Absolute Auto 0.02 K/mm3 (0.02-0.50); Eosinophils Percent Auto 0.4 % (1.0-6.0); Hematocrit 26.4 % (35.0-49.0); Hemoglobin 7.3 g/dL (12.0-15.0); Immature Granulocyte Absolute 0.02 K/mm3 (0.00-0.00); Immature Granulocyte Percent A 0.4 % (0.0-0.0); Immature Platelet Fraction Pct 3.2 % (1.0-7.0); Immature Reticulocyte Fraction 26.1 % (2.0-16.52); Lymphocytes Absolute Auto 1.27 K/mm3 (1.10-4.50); Lymphocytes Percent Auto 22.5 % (18.0-42.0); Mean Corpuscular HGB Conc 27.7 g/dL (32.0-36.0); Mean Corpuscular Hemoglobin 18.2 pg (27.0-31.0); Mean Corpuscular Volume 65.7 fL (78.0-102.0); Mean Platelet Volume 9.8 fl (9.2-11.8); Monocytes Absolute Auto 0.58 K/mm3 (0.10-0.90); Monocytes Percent Auto 10.3 % (2.0-11.0); Neutrophils Absolute Auto 3.7 K/mm3 (1.7-7.2); Neutrophils Percent Auto 65.3 % (50.0-70.0); Platelet Count Result 283 K/mm3 (150-420); Red Blood Count 4.02 M/mm3 (4.20-5.40); Red Cell Distribution Width 17.9 % (11.6-14.4); Reticulocyte Percent 1.82 % (0.50-1.50); Reticulocytes Absolute 0.07 M/mm3 (0.02-0.1); White Blood Count 5.7 K/mm3 (4.8-10.8)
[2023-05-21 09:21] LABS: Ferritin 4 ng/mL (8-252); Folic Acid 6.5 ng/mL (8.6->20); Iron 11 ug/dL (50-170); Percent Iron Saturation 2 % (12-57); Vitamin B12 469 pg/mL (193-986)
== END 2023-05-21 07:51 | disposition home or self-care (01) ==
PROVIDERS: PCP Family Medicine; Visit Provider Family Medicine
DX: D50.9 Iron deficiency anemia, unspecified (principal)
CPT/HCPCS: 36415; 82607; 82728; 82746; 83540; 83550; 85025; 85046; 85055

== ENCOUNTER 2023-07-02 10:10 | Outpatient (CLI) | payer MEDICARE, MEDICAID, SELFPAY ==
--- NOTE | ~2023-07-02 | XR_ITS ---
EXAMINATION: XR shoulder RT min 2V DATE: 07/02/2023 11:06 INDICATION: Right shoulder pain. Fall. TECHNIQUE: 4 views of right shoulder were obtained. COMPARISON: None. FINDINGS: Bone alignment is normal. No fracture. There is mild osteoarthritis of glenohumeral joint a nd acromioclavicular joint. IMPRESSION: 1. Mild polyarticular osteoarthritis. Reviewed, dictated and finalized at location A. PHYSICIAN
--- NOTE | ~2023-07-02 | XR_ITS ---
XR hip LT min 2V DATE: 07/02/2023 11:06 INDICATION: Lateral left hip pain TECHNIQUE: AP and lateral views of left hip COMPARISON: None FINDINGS: The pubic symphysis and left sacroiliac joint are intact. No fracture or dislocation, avascular necrosis or bone destruction of the left hip. Left hip joint sp gustavo appears well preserved. IMPRESSION: Negative Reviewed, dictated and finalized at location L. ALT PAVER IMPRESSION: Negative
--- NOTE | ~2023-07-02 | XR_ITS ---
XR wrist RT min 3V DATE: 07/02/2023 11:07 INDICATION: Fall 3 days ago. Right wrist numbness. TECHNIQUE: 4 views COMPARISON: None FINDINGS: There is mild osteoarthritis at the first carpometacarpal joint. No fracture or dislocation, periosteal reaction or bone destruction, erosive change or chondrocalcino sis is detected. IMPRESSION: Mild osteoarthritis Reviewed, dictated and finalized at location L. SERVICER IMPRESSION: Mild osteoarthritis
== END 2023-07-02 10:11 | disposition home or self-care (01) ==
PROVIDERS: PCP Family Medicine; Visit Provider Family Medicine
DX: S49.91XA Unspecified injury of right shoulder and upper arm, initial encounter (principal); S69.91XA Unspecified injury of right wrist, hand and finger(s), initial encounter; M25.552 Pain in left hip; M19.031 Primary osteoarthritis, right wrist
CPT/HCPCS: 73030; 73110; 73502

== ENCOUNTER 2023-07-05 07:16 | Outpatient (CLI) | payer MEDICARE, SELFPAY ==
[2023-07-05 07:43] LABS: Prothrombin Time 10.8 Seconds (9.50-12.10)
== END 2023-07-05 07:17 | disposition home or self-care (01) ==
LOC: CHSLAB 07:18
PROVIDERS: PCP Family Medicine; Visit Provider Internal Medicine Rheumatology
DX: R79.1 Abnormal coagulation profile (principal)
CPT/HCPCS: 36415; 85610

== ENCOUNTER 2023-08-14 10:23 | Outpatient (CLI) | payer MEDICARE, SELFPAY ==
[2023-08-14 10:35] LABS: Appearance Urine Clear (Clear); Bilirubin Urine Negative (Negative); Blood Urine Negative (Negative); Color Urine Light Yellow (Yellow); Glucose Urine UA Negative (Negative); Ketones Urine Negative (Negative); Leukocyte Esterase Ur Negative (Negative); Nitrate Urine Negative (Negative); Protein Urine Negative (Negative); Specific Grav Ur <= 1.005 (1.010-1.020); Urobilinogen Urine 0.2 mg/dL (0.2-1.0)
[2023-08-14 10:39] LABS: Add Urine Microscopic? NO
== END 2023-08-14 10:24 | disposition home or self-care (01) ==
LOC: CHSLAB 10:25
PROVIDERS: PCP Family Medicine; Visit Provider Family Medicine
DX: R30.0 Dysuria (principal)
CPT/HCPCS: 81003; 87086

== ENCOUNTER 2023-08-21 12:40 | Outpatient (CLI) | payer MEDICARE, MEDICAID, SELFPAY ==
--- NOTE | ~2023-08-21 | XR_ITS ---
EXAMINATION: XR hand RT min 3V DATE: 08/21/2023 13:02 INDICATION: Right hand injury and pain. TECHNIQUE: 3 views of right hand were obtained. COMPARISON: Right wrist radiographs 07/02/2023 FINDINGS: Bone alignment is normal. No acute fracture. There is an old healed fracture of diaphysis o f fifth metacarpal. There is mild osteoarthritis of triscaphe joint, first carpometacarpal joint, and some of the interphalangeal joints. IMPRESSION: 1. Mild polyarticular osteoarthritis. Reviewed, dictated and finalized at location E. R TAXI FERRY OPERATOR
== END 2023-08-21 12:41 | disposition home or self-care (01) ==
LOC: CHSIMG 12:42
PROVIDERS: PCP Family Medicine; Visit Provider Family Medicine
DX: S69.91XA Unspecified injury of right wrist, hand and finger(s), initial encounter (principal); M19.041 Primary osteoarthritis, right hand
CPT/HCPCS: 73130

== ENCOUNTER 2023-09-06 23:15 | Emergency (ER) | payer MEDICARE, MEDICAID, SELFPAY ==
[2023-09-06 23:15] VITALS: BP 135/90; PULSE 83; RESP 20; TEMP 36; O2SAT 98
--- NOTE | 2023-09-06 23:27 | ED.DENTAL ---
HPI - Dental/Oral General Stated complaint: tooth pain Time Seen by Provider: 09/06/23 23:26 Source: patient Mode of arrival: ambulatory Limitations: no limitations History of Present Illness HPI Narrative: 53 YEARS OLD WHITE FEMALE HAVE EXTENSIVE DENTAL DECAY ALL OVER, CLAIMING 1 OF THE TOOTH GOT BROKEN OR CHIPPED OF FEW HOURS AGO CAUSING PAIN. PATIENT CURRENTLY ON AMOXICILLIN FOR UPPER RESPIRATORY INFECTION. PATIENT CLAIMING HAVING PEPTIC ULCER DISEASE AND CANNOT TAKE NSAID. PATIENT WAS SEEN NUMEROUS OF TIME BEFORE WITH THE DENTIST WHO REFERRED HER TO ORAL SURGEON WITHOUT SUCCESS Related Data Home Medications Medication Instructions Recorded Confirmed albuterol sulfate 2.5 mg/3 mL 2.5 mg inhalation Q4H PRN 08/21/19 01/24/22 (0.083 %) solution for nebulization Shortness Of Breath albuterol sulfate 90 mcg/actuation 2 puff inhalation QID PRN 08/21/19 01/24/22 aerosol inhaler (ProAir HFA) Shortness Of Breath budesonide-formoterol HFA 160 2 puff inhalation Q12H 08/21/19 01/24/22 mcg-4.5 mcg/actuation aerosol inhaler (Symbicort) famotidine 20 mg tablet 20 mg PO BID 08/21/19 01/24/22 gabapentin 300 mg capsule 900 mg PO TID 08/21/19 01/24/22 sucralfate 1 gram tablet (Carafate) 1 g PO QID 08/21/19 01/24/22 Allergies Allergy/AdvReac Type Severity Reaction Status Date / Time cefaclor [From Ceclor] Allergy Rash Verified 01/24/22 15:13 diazepam [From Valium] Allergy Agitated Verified 01/24/22 15:13 duloxetine [From Cymbalta] Allergy Rash Verified 01/24/22 15:13 Review of Systems Review of Systems: All systems reviewed & are unremarkable except as noted in HPI and below PMFSH Past Medical History Medical History Asthma Fibromyalgia Finger amputation, no complication GERD (gastroesophageal reflux disease) Glomus tumor Rheumatoid arthritis Exam Narrative: GENERAL APPEARANCE: WELL-DEVELOPED, WELL-NOURISHED SKIN: NORMAL COLOR HEAD: NORMOCEPHALIC, NONTRAUMATIC EYES: CLEAR CONJUNCTIVA ENT: OROPHARYNX NORMAL, EARS NORMAL, NOSE NORMAL, EXTENSIVE DENTAL DECAY ALL OVER, BASICALLY BLACK ROOTS OF THE TEETH, ACTUALLY THERE IS NO TEETH, PATIENT CLAIMING 1 OF THE ROOT GOT CHIPPED OFF WHICH I COULD NOT DIFFERENTIATE BETWEEN THAT ROOT AND OTHER ROOTES. NEUROLOGIC: ALERT AND ORIENTED ?3, DIRECTOR OF THE BIOPHYSICS FACILITY IS NORMAL TESTED, NO GROSS MOTOR DEFICIT Course Vital Signs Vital signs: Vital Signs Temperature 36.0 C L 09/06/23 23:15 Pulse Rate 83 09/06/23 23:15 Respiratory Rate 20 09/06/23 23:15 Blood Pressure 135/90 09/06/23 23:15 Pulse Oximetry 98 09/06/23 23:15 Oxygen Delivery Room Air 09/06/23 23:15 Temperature 36.0 C L 09/06/23 23:15 Pulse Rate 83 09/06/23 23:15 Respiratory Rate 09/06/23 23:15 Blood Pressure 135/90 09/06/23 23:15 Pulse Oximetry 98 09/06/23 23:15 Oxygen Delivery Room Air 09/06/23 23:15 MDM - Dental/Oral MDM Narrative Medical decision making narrative: PATIENT HAVE EXTENT DENTAL DECAY ALL OVER, NO TEETH, BLACK DENTAL ROOTS. IN THE ED PATIENT RECEIVED 1 TABLET OF IBUPROFEN 1 TABLET OF NORCO AND WAS DISCHARGED ON HOME ON OMEPRAZOL PRESCRIPTION AND IBUPROFEN. NO NEED FOR ANTIBIOTIC. THERE IS NO INFECTION, PATIENT DOES HAVE AMOXICILLIN AT HOME AT THIS TIME Critical Care Time Critical Care Time Critical Care Time: No Discharge Plan Discharge Clinical Impression: Tooth caries Patient Disposition: Home, Self-Care Condition: Stable Instructions: Toothache (ED) Additional Instructions: SEE A DENTIST WITHIN 3-5 DAYS, MOUTH GUM NEEDED Prescriptions: New omeprazole 20 mg capsule,delayed release(
[2023-09-07] MEDS: IBUPROFEN 600 MG TABLET PO (00:05)
[2023-09-07] MEDS: HYDROcodone/acetaminophen (*CRX) 5-325 MG TABLET 1 TAB PO (00:06)
== END 2023-09-07 00:15 | disposition home or self-care (01) ==
LOC: CHSED 23:45
PROVIDERS: Emergency Provider Emergency Medicine; PCP Family Medicine
DX: K02.9 Dental caries, unspecified (principal); J45.909 Unspecified asthma, uncomplicated; M79.7 Fibromyalgia; M06.9 Rheumatoid arthritis, unspecified
CPT/HCPCS: 99283; A9270

== ENCOUNTER 2023-09-11 15:25 | Outpatient (CLI) | payer MEDICARE, SELFPAY ==
[2023-09-11 15:39] LABS: Basophils Absolute Auto 0.03 K/mm3 (0.00-0.10); Basophils Percent Auto 0.3 % (0.0-1.0); Eosinophils Absolute Auto 0.33 K/mm3 (0.02-0.50); Eosinophils Percent Auto 3.4 % (1.0-6.0); Hematocrit 33.6 % (35.0-49.0); Hemoglobin 10.2 g/dL (12.0-15.0); Immature Granulocyte Absolute 0.03 K/mm3 (0.00-0.00); Immature Granulocyte Percent A 0.3 % (0.0-0.0); Lymphocytes Percent Auto 23.9 % (18.0-42.0); Mean Corpuscular HGB Conc 30.4 g/dL (32.0-36.0); Mean Corpuscular Hemoglobin 23.4 pg (27.0-31.0); Mean Corpuscular Volume 77.1 fL (78.0-102.0); Mean Platelet Volume 8.8 fl (9.2-11.8); Monocytes Absolute Auto 0.64 K/mm3 (0.10-0.90); Monocytes Percent Auto 6.7 % (2.0-11.0); Neutrophils Absolute Auto 6.3 K/mm3 (1.7-7.2); Neutrophils Percent Auto 65.4 % (50.0-70.0); Platelet Count Result 349 K/mm3 (150-420); Red Blood Count 4.36 M/mm3 (4.20-5.40); Red Cell Distribution Width 15.5 % (11.6-14.4); White Blood Count 9.6 K/mm3 (4.8-10.8)
[2023-09-11 15:48] LABS: Hemoglobin A1C 5.3 % (<5.7)
[2023-09-11 16:27] LABS: Alanine Aminotransferase 29 U/L (14-59); Albumin Level 3.2 g/dL (3.4-5.0); Alkaline Phosphatase 67 U/L (46-116); Anion Gap 8 mmol/L (8-16); Aspartate Amino Transferase 17 U/L (15-37); Bilirubin,Total 0.1 mg/dL (0.00-1.00); Blood Urea Nitrogen 14 mg/dL (7-18); Calcium 8.9 mg/dL (8.5-10.1); Carbon Dioxide 33 mmol/L (21-32); Chloride 102 mmol/L (98-108); Cholesterol 201 mg/dL (0-200); Estimated Glomerular Filt Rate > 60; Ferritin 12 ng/mL (8-252); Glucose 105 mg/dL (70-99); HDL Direct 52 mg/dL (40-60); Iron 15 ug/dL (50-170); LDL Cholesterol Calculated 116 mg/dL (<130); Osmolality Calculated 296 mOsm/kg (285-295); Percent Iron Saturation 4 % (12-57); Potassium 4.3 mmol/L (3.5-5.1); Sodium 143 mmol/L (136-145); Total Protein 6.8 g/dL (6.4-8.2); Triglycerides 167 mg/dL (0-150)
== END 2023-09-11 15:26 | disposition home or self-care (01) ==
LOC: CHSLAB 15:28
PROVIDERS: PCP Family Medicine; Visit Provider Physician Assistant
DX: D50.9 Iron deficiency anemia, unspecified (principal); E78.5 Hyperlipidemia, unspecified; R73.01 Impaired fasting glucose
CPT/HCPCS: 36415; 80053; 80061; 82728; 83036; 83540; 83550; 85025

== ENCOUNTER 2023-10-01 15:19 | Outpatient (CLI) | payer MEDICARE, MEDICAID, SELFPAY ==
--- NOTE | ~2023-10-01 | XR_ITS ---
XR shoulder RT min 2V DATE: 10/01/2023 15:47 INDICATION: Patient fell a few weeks ago. Right arm, shoulder pain TECHNIQUE: 5 views COMPARISON: None FINDINGS: No fracture or dislocation, periosteal reaction or bone destruction. Normal alignment at th e malathi clavicular and glenohumeral joints. IMPRESSION: No significant abnormality Reviewed, dictated and finalized at location L. TECHNICIAN IMPRESSION: No significant abnormality
--- NOTE | ~2023-10-01 | XR_ITS ---
XR_CERV2-3V_CR DATE: 10/01/2023 15:47 INDICATION: Patient fell a few weeks ago. Neck pain radiating to right arm. TECHNIQUE: AP, open-mouth, lateral views COMPARISON: None FINDINGS: There is straightening of the cervical spine which may be due to muscle spasm. There is mil d cervical dextroscoliosis. C1 and C2 are normally aligned and the odontoid process is intact. No fracture or dislocation or locked facet or prevertebral soft tissue swelling. There is mild loss of interspace height at C4-5. There is minimal anterolisthesis and mild anterior s purring at C5-6. Moderate degenerative disc disease at C6-7. IMPRESSION: Straightening and mild dextroscoliosis of the cervical spine Moderate cervical spondylosis Reviewed, dictated and finalized at Location A. Reviewed, dictated and finalized at location L. T AGENT
== END 2023-10-01 15:20 | disposition home or self-care (01) ==
LOC: CHSIMG 15:23
PROVIDERS: PCP Physician Assistant; Visit Provider Family Medicine
DX: M25.511 Pain in right shoulder (principal); M54.12 Radiculopathy, cervical region; M41.82 Other forms of scoliosis, cervical region; M43.02 Spondylolysis, cervical region
CPT/HCPCS: 72040; 73030

== ENCOUNTER 2024-02-10 12:44 | Outpatient (CLI) | payer MEDICARE, MEDICAID, SELFPAY ==
--- NOTE | ~2024-02-10 | XR_ITS ---
XR hip RT min 2V Ordering provider: Moise Ortiz, ENTERPRISE SOFTWARE ENGINEER History: . LAT HIP AND KNEE PAIN X1 DAY, LANDED ON RT LEG WRONG . Comparison: None. FINDINGS: BONES: No acute fracture or dislocation. HIP JOINT SPACES: Normal. SACROILIAC JOINT SPACES: The sacroiliac joint spaces are normal. PUBIC SYMPHYSIS: Normal. SOFT TISSUES: Normal. IMPRESSION: No acute osseous abnormality pelvis and right hip. Reviewed, dictated and finalized at location A.
--- NOTE | ~2024-02-10 | XR_ITS ---
XR knee RT 3V Ordering provider: Moise Ortiz, FLUE LINING DIPPER History: . LAT RT HIP AND KNEE PAIN X 1DAY, LANDED ON RT LEG WRONG . Comparison: March 16, 2017 FINDINGS: BONES: No acute fracture or dislocation. JOINT SPACES: Normal. SOFT TISSUES: Normal. IMPRESSION: No acute osseous abnormality right knee. Reviewed, dictated and finalized at location A.
[2024-02-10 13:58] LABS: Basophils Absolute Auto 0.05 K/mm3 (0.00-0.10); Basophils Percent Auto 0.5 % (0.0-1.0); Eosinophils Absolute Auto 0.36 K/mm3 (0.02-0.50); Eosinophils Percent Auto 3.5 % (1.0-6.0); Hematocrit 40.2 % (35.0-49.0); Hemoglobin 12.9 g/dL (12.0-15.0); Immature Granulocyte Absolute 0.05 K/mm3 (0.00-0.00); Immature Granulocyte Percent A 0.5 % (0.0-0.0); Lymphocytes Percent Auto 21.5 % (18.0-42.0); Mean Corpuscular HGB Conc 32.1 g/dL (32-36); Mean Corpuscular Hemoglobin 27.3 pg (27.0-31.0); Mean Corpuscular Volume 85.2 fL (78.0-102.0); Mean Platelet Volume 10.1 fl (9.2-11.8); Monocytes Percent Auto 6.9 % (2.0-11.0); Neutrophils Absolute Auto 6.85 K/mm3 (1.70-7.20); Neutrophils Percent Auto 67.1 % (50.0-70.0); Platelet Count Result 351 K/mm3 (150-420); Red Blood Count 4.72 M/mm3 (4.20-5.40); Red Cell Distribution Width 14.3 % (11.6-14.4); White Blood Count 10.2 K/mm3 (4.8-10.8)
[2024-02-10 14:37] LABS: Alanine Aminotransferase 37 U/L (14-59); Albumin Level 3.5 g/dL (3.4-5.0); Alkaline Phosphatase 56 U/L (46-116); Anion Gap 7 mmol/L (4-12); Aspartate Amino Transferase 19 U/L (15-37); Bilirubin,Total 0.3 mg/dL (0.00-1.00); Blood Urea Nitrogen 11 mg/dL (7-18); Calcium 9.2 mg/dL (8.5-10.1); Carbon Dioxide 30 mmol/L (21-32); Chloride 103 mmol/L (98-108); Cholesterol 172 mg/dL (0-200); Estimated Glomerular Filt Rate > 60; Ferritin 73 ng/mL (8-252); Glucose 108 mg/dL (70-99); HDL Direct 54 mg/dL (40-60); Iron 43 ug/dL (50-170); LDL Cholesterol Calculated 93 mg/dL (<130); Osmolality Calculated 290 mOsm/kg (285-295); Percent Iron Saturation 13 % (12-57); Potassium 4.4 mmol/L (3.5-5.1); Sodium 140 mmol/L (136-145); Total Protein 6.8 g/dL (6.4-8.2); Triglycerides 123 mg/dL (0-150)
[2024-02-10 14:43] LABS: Hemoglobin A1C 5.1 % (<5.7)
== END 2024-02-10 12:45 | disposition home or self-care (01) ==
LOC: CHSLAB 12:48
PROVIDERS: PCP Family Medicine; Visit Provider Registered Nurse
DX: R73.01 Impaired fasting glucose (principal); D50.9 Iron deficiency anemia, unspecified; D64.9 Anemia, unspecified; E78.5 Hyperlipidemia, unspecified; M25.551 Pain in right hip; M25.561 Pain in right knee
CPT/HCPCS: 36415; 73502; 73562; 80053; 80061; 82728; 83036; 83540; 83550; 85025

== ENCOUNTER 2024-10-30 15:43 | Outpatient (CLI) | payer MEDICARE, MEDICAID, SELFPAY ==
--- NOTE | ~2024-10-30 | XR_ITS ---
XR hip RT min 2V Ordering provider: Kyrie Goldsmith, History: . Rt. hip pain post fall x3 days . Comparison: None. FINDINGS: BONES: No acute fracture or dislocation. HIP JOINT SPACES: Mild to moderate narrowing of the joint space suggestive of mild to moderate osteoa rthritic changes. SACROILIAC JOINT SPACES/LUMBAR SPINE: The right sacroiliac joint spaces is narrowed. Mild degenerativ e changes of the visualized lower lumbar spine. PUBIC SYMPHYSIS: Normal. SOFT TISSUES: Normal. IMPRESSION: No acute osseous abnormality pelvis and right hip. Mild to moderate right hip osteoarthritic changes. Reviewed, dictated and finalized at location A.
--- OUTSIDE RECORDS SUMMARY | 2024-10-30 15:47 | XMS_ITS | Clinical Summary ---
Author Organization [facility] Address [address] [place] [address] Care Team Providers Care Panel Maker Name Role Phone Kyrie Goldsmith MD Primary Care Provider Allergies Active Allergy Reactions Criticality Noted Date Comments Cefaclor Hives 02/21/2016 Diazepam Other (see comment) 02/21/2016 Patient states she gets aggresive Latex Hives 03/24/2020 Medications gabapentin 300 MG capsule Take 900 mg by mouth 3 (three) times daily. Active budesonide-form oterol 160-4.5 MCG/ACT inhaler Inhale 2 puffs into the lungs 2 (two) times daily. Active sucralfate 1 G tablet Take 1 g by mouth 4 (four) times daily before meals and nightly. Active montelukast 10 MG tablet Take 10 mg by mouth daily. Active famotidine 10 MG tablet Take 10 mg by mouth 2 (two) times daily. Active albuterol 0.63 MG/3ML nebulizer solution Take 1 ampule by nebulization every 6 (six) hours as needed for Wheezing. Active Active Problems Problem Noted Date Diagnosed Date Iron deficiency anemia 05/30/2023 Lumbar pain 04/27/2022 Chronic pain of right ankle 03/22/2021 Family History Medical History Relation Comments Dementia Father Parkinson's Disease Father Stroke Father No Known Problems Maternal Grandfather No Known Problems Maternal Grandmother No Known Problems Mother Thyroid Other No Known Problems Paternal Grandfather Multiple Sclerosis Paternal Grandmother Parkinson's Disease Paternal Grandmother Cancer Sister Relation Status Comments Father Maternal Grandfather Maternal Grandmother Mother Other Other Paternal Grandfather Paternal Grandmother Sister Social History Tobacco Use Types Packs/Day Years Used Date Smoking Tobacco: Every Day Cigarettes 1 15 Smokeless Tobacco: Never Alcohol Use Standard Drinks/Week Comments Never 0 (1 standard drink = 0.6 oz pur e alcohol) AUDIT-C Answer Date Recorded Q1: How often do you have a drink containing alc ohol? Never 03/24/2020 Average Number of Drinks Not on file 020 Frequency of Binge Drinking Not on file 01/2020 Comments No Sex and Gender Information Value Date Recorded Sex Assigned at Not on file Legal Sex Female 4:55 PM CDT Gender Identity Not on file Sexual Orientation Not on file Last Filed Vital Signs Vital Sign Reading Time Taken Comments Blood Pressure 129/76 06/14/2023 9:03 AM CDT Pulse 84 06/14/2023 9:03 AM CDT Temperature 35.9 C (96.6 F) 06/14/2023 9:03 AM CDT Respiratory Rate 16 06/14/2023 9:03 AM CDT Oxygen Saturation 97% 06/14/2023 9:03 AM CDT Inhaled Oxygen Concentration - - Weight 101.4 kg (223 lb 8.7 oz) 06/14/2023 9:03 AM CDT Height 160 cm (5' 3 ) 08/22/2021 10:10 AM INFORMATION TECHNOLOGY DIRECTOR Body Mass Index 39.6 08/22/2021 10:10 AM INFORMATION TECHNOLOGY DIRECTOR Plan of Treatment Health Maintenance Due Date Last Done Comments Cervical Cancer Screening Pa p Smear (Age 30 to 64) Every 3 Years 1968 Colorectal Cancer Screening Colonoscopy (10 Years) 1968 Annual Physical 12/10/1971 Pneumococcal Vaccine: Pediatrics (0 to 5 Years) and At-Risk Patients (6 to 64 Years) (1 of 2 - PCV) 1974 Hepatitis C 1986 Hepatitis B Vaccines (1 of 3 - 19+ 3-dose series) 12/10/1987 Cervical Cancer Screening Pa p with HPV Testing (Age 30 to 64) Every 5 Years 1998 Cervical Cancer Screening wi th HPV 1998 Mammogram Screening 2008 Zoster Vaccines (1 of 2) 2018 COVID-19 Vaccine (3 - 2023-2 5 season) 2024 12/27/2020, 11/29/2020 Influenza Adult (#1) 2024 DTaP, Tdap and Td Vaccines ( 2 - Td or Tdap) 03/10/2031 03/10/2021 Meningococcal B Vaccine Aged Out No l onger eligible based on patient's age to complete this topic Meningococcal Vaccine Aged Out No beto genia eligible based on patient's age to complete this topic RSV Immunizations Under 20 Months Aged Out No longer eligible b ased on patient's age to complete this topic Insurance MEDICAID MEDICARE Care Teams Panel Maker Relationship Specialty Start Date End Date Kyrie Goldsmith MD [address] [place] [address] PCP - General FAMILY PRACTICE 05/14/19
== END 2024-10-30 15:44 | disposition home or self-care (01) ==
PROVIDERS: PCP Family Medicine; Visit Provider Family Medicine
DX: M16.11 Unilateral primary osteoarthritis, right hip (principal); M25.551 Pain in right hip
CPT/HCPCS: 73502

== ENCOUNTER 2024-11-12 07:53 | Outpatient (RCR) | payer MEDICARE, MEDICAID, SELFPAY ==
--- NOTE | 2024-11-12 08:06 | OPREHPOC ---
Outpatient Therapy Plan of Care This is a Multidisciplinary Plan of Care that may contain components documented by all disciplines (PT, OT, and ST.) PT Problem 1 PT Problem #1 Knowledge Deficit PT Goal 1 Goal / Goal Update 1. independent and compliant with HEP Target Visit 6 PT Problem 2 PT Problem #2 Pain PT Goal 1 Goal / Goal Update 1. decrease pain at worst in the R hip in the last week to 3/10 or less 2. decrease pain at worst in the lower back in the last week to 4/10 or less Target Visit 12 PT Problem 3 PT Problem #3 Impaired Range of Motion PT Goal 1 Goal / Goal Update 1. improve lumbar flexion to knees or better without pain 2. improve lumbar extension to 10 degrees or better without pain 3. 100 degrees passive R hip flex 4. patient to tolerate 30 degrees of passive R hip IR and ER without pain Target Visit 12 PT Problem 4 PT Problem #4 Impaired Strength PT Goal 1 Goal / Goal Update 1. 4/5 or better bilateral hip strength overall 2. 5/5 bilateral knee strength 3. 5/5 bilateral ankle DF Target Visit 12 PT Problem 5 PT Problem #5 Impaired Functional Mobility PT Goal 1 Goal / Goal Update 1. patient to return to ambulation with reciprocal fluid mechanics with use of cane. 2. patient to complete 6 minutes walk test without rest for 800ft or more. 3. patient to tolerate 30 minutes or more of standing without increased R hip and lower back pain. 4. LEFS to display 30% or less functional deficits . Target Visit 12
--- NOTE | 2024-11-12 08:06 | PTOPEVAL1 ---
Assessment and note entered by JT File, PT Evaluation Information Assessment Status Evaluation ICD-10 Condition Codes (PT) Pain in right hip M25.551 Onset 10/17/24 Subjective Information patient reports she had a fall in early october. she reports was standing on her tip toes trying to reach her jacket off the hook at home. her shoe got caught on her granddaughters scooter when she came down and she fell. she reports the back and the hip are getting worse since being off steroids for her laryngitis. she reports she has pain in lower back and the R hip. she reports pain from the hip down to the knee and side of the hip. she reports she has a lot of trouble getting up from a chair (feels like the leg isn't ready to move with her). she reports she had xrays of the R hip only (arthritis). she reports when she fell, she fell on the L side, but the R side if the most painful side. she reports she currently has a stabbing pain in the back today. se reports she has no NTB in the R LE. she reports driving also increases the R hip pain. Reported Pain Level Pain Score 7,3: Self Report Assessment PT Clinical Summary mrs. gutierrez is a 53 yo woman who presents to skilled PT services for evaluation and treatment of lower back and R hip pain. she presents with pain in the central lower back, anterior R hip, and R thigh. she reports no NTB in the LE's, but some bladder pain and pelvic pain at times. she has increased pain with all movements involving the lower back and R hip, as well as, standing and closed chain activities. her signs and symptoms are consistent with a possible HNP of the lower back, and an acute flare up of Hip OA and lumbar DDD. continued skilled PT is indicated to improve her objective/functional deficits and allow patient to return to her prior level functional activity performance/quality of life. she would also benefit from imaging of the lumbar spine, specifically MRI to rule out any HNP that may require more aggressive treatment. Plan of Care Interventions Electrical Stimulation,Gait Training,Hot Pack/Cold Pack,Manual Therapy,Neuro Re-education,Patient/ Caregiver Education,Therapeutic Activities, Therapeutic Exercise PT Services Indicated Yes Treatment Frequency and 3x weekly for 12 visits Duration These treatments will address the objective and functional deficits as defined above. The patient will be advanced safely and appropriately in order for the patient to progress towards his/her prior level of function. Additional exercises will be introduced and as well as a comprehensive home exercise program upon discharge, if needed, ?to ensure carryover of functional gains achieved in the clinic. This treatment plan has been reviewed and agreement upon by the patient.
--- NOTE | 2024-11-27 07:56 | OPREHPOC ---
Outpatient Therapy Plan of Care This is a Multidisciplinary Plan of Care that may contain components documented by all disciplines (PT, OT, and ST.) PT Problem 1 PT Problem #1 Knowledge Deficit PT Goal 1 Goal / Goal Update 1. independent and compliant with HEP Target Visit 6 Progress Met PT Problem 2 PT Problem #2 Pain PT Goal 1 Goal / Goal Update 1. decrease pain at worst in the R hip in the last week to 3/10 or less 2. decrease pain at worst in the lower back in the last week to 4/10 or less Target Visit 12 Progress Not Met PT Problem 3 PT Problem #3 Impaired Range of Motion PT Goal 1 Goal / Goal Update 1. improve lumbar flexion to knees or better without pain 2. improve lumbar extension to 10 degrees or better without pain 3. 100 degrees passive R hip flex 4. patient to tolerate 30 degrees of passive R hip IR and ER without pain Target Visit 12 Progress Not Met PT Problem 4 PT Problem #4 Impaired Strength PT Goal 1 Goal / Goal Update 1. 4/5 or better bilateral hip strength overall 2. 5/5 bilateral knee strength 3. 5/5 bilateral ankle DF Target Visit 12 Progress Not Met PT Problem 5 PT Problem #5 Impaired Functional Mobility PT Goal 1 Goal / Goal Update 1. patient to return to ambulation with reciprocal fluid mechanics with use of cane. 2. patient to complete 6 minutes walk test without rest for 800ft or more. 3. patient to tolerate 30 minutes or more of standing without increased R hip and lower back pain. 4. LEFS to display 30% or less functional deficits . Target Visit 12 Progress Not Met
--- NOTE | 2024-11-27 07:56 | PTOPPROGNS ---
Assessment and note entered by JT File, PT Evaluation Information Assessment Status Progress ICD-10 Condition Codes (PT) Pain in right hip M25.551 Onset 10/17/24 Subjective Information patient reports she continues to have pain in the lower back, R hip, R flank, and now also between the shoulders today. she reports her pain increases with movement. patient reports she is going to see her MD later today. she reports she does not tolerate laying on her back. she reports she has to sleep on her side, but reports she only tolerates a little bit at a time. she reports getting up from a chair is still really painful. she reports just yesterday she began feeling like a pinch in her back and she will get sharp pain in the back and the R LE. Assessment PT Clinical Summary mrs. gutierrez presents to skilled PT today for her 7th skilled PT visit. thus far, skilled PT has been unsuccessful in treating her pain and symptoms. she is unable to tolerate sitting, standing, or laying exercises. she is too hypersensitive to tolerate manual treatment that would be beneficial to her. continued skilled PT is not advised at this time until she follows up with her MD. we will hold therapy, and await MD recommendations/additional testing. Plan of Care Interventions Electrical Stimulation,Gait Training,Hot Pack/Cold Pack,Manual Therapy,Neuro Re-education,Patient/ Caregiver Education,Therapeutic Activities, Therapeutic Exercise PT Services Indicated Yes Treatment Frequency and hold therapy to follow up with MD Duration These treatments will address the objective and functional deficits as defined above. The patient will be advanced safely and appropriately in order for the patient to progress towards his/her prior level of function. Additional exercises will be introduced and as well as a comprehensive home exercise program upon discharge, if needed, ?to ensure carryover of functional gains achieved in the clinic. This treatment plan has been reviewed and agreement upon by the patient.
--- NOTE | 2025-01-27 15:36 | OPREHPOC ---
Outpatient Therapy Plan of Care This is a Multidisciplinary Plan of Care that may contain components documented by all disciplines (PT, OT, and ST.) PT Problem 1 PT Problem #1 Knowledge Deficit PT Goal 1 Goal / Goal Update 1. independent and compliant with HEP Target Visit 6 Progress Met PT Goal 2 Goal / Goal Update continue Target Visit 6 PT Problem 2 PT Problem #2 Pain PT Goal 1 Goal / Goal Update 1. decrease pain at worst in the R hip in the last week to 3/10 or less 2. decrease pain at worst in the lower back in the last week to 4/10 or less Target Visit 12 Progress Not Met PT Goal 2 Goal / Goal Update continue Target Visit 12 PT Problem 3 PT Problem #3 Impaired Range of Motion PT Goal 1 Goal / Goal Update 1. improve lumbar flexion to knees or better without pain 2. improve lumbar extension to 10 degrees or better without pain 3. 100 degrees passive R hip flex 4. patient to tolerate 30 degrees of passive R hip IR and ER without pain Target Visit 12 Progress Not Met PT Goal 2 Goal / Goal Update continue Target Visit 12 PT Problem 4 PT Problem #4 Impaired Strength PT Goal 1 Goal / Goal Update 1. 4/5 or better bilateral hip strength overall 2. 5/5 bilateral knee strength 3. 5/5 bilateral ankle DF Target Visit 12 Progress Not Met PT Goal 2 Goal / Goal Update continue Target Visit 12 PT Problem 5 PT Problem #5 Impaired Functional Mobility PT Goal 1 Goal / Goal Update 1. patient to return to ambulation with reciprocal fluid mechanics with use of cane. 2. patient to complete 6 minutes walk test without rest for 800ft or more. 3. patient to tolerate 30 minutes or more of standing without increased lower back pain. Target Visit 12 Progress Not Met PT Goal 2 Goal / Goal Update 4. pt to report less than 30% perceived disability on the Oswestry. Target Visit 12
--- NOTE | 2025-01-27 15:36 | PTOPREEVAL ---
Assessment and note entered by JT File, PT Evaluation Information Assessment Status Re-evaluation ICD-10 Condition Codes (PT) Pain in right hip M25.551 Other ICD-10 Condition Codes ( M54.9 PT) Onset 10/17/24 Subjective Information Pt reports that she went back to the MD and the MD recommended going to pain management. Pt reports that the pain hasn't gotten any better or worse. Pt reports that she would like to be able to bend over so she can garden. Pt reports that she got an x-ray of her back when she went to the ER. Pt reports that the x-ray showed that her tailbone was out of wack. Pt reports that she had to get a blood transfusion and thinks that is why it is not healing. Pt reports that she had an MRI of her hip. Pt reports that she has no MRI scheduled for the back. Pt reports she can not bend over more than 30 seconds without issues. Pt reports that not being able to bend over makes dishes and cooking on the grill almost impossible. Pt reports that she stretches, but the more she moves the more her back hurts. Pt reports that if she lays in bed to long (more than 5 hours) it increases pain. Pt reports that she is still having bladder problems, when she bends over she reports she has incontinence. Pt also reports sometimes when using the bathroom it wont come out because her muscles feel weak. Pt reports that she has a stabbing pain in her legs when she is walking. Reported Pain Level Pain Score 5: Self Report Assessment PT Clinical Summary is a 54 y/o female who is returning to skilled PT after following up with MD with persistent low back pain. Pts objective and subjective reports are consistent with a herniated disc in the lumbar spine. Pt has high perceived disability with limitations in strength, ROM, posture, and sensation. Pt would benefit from skilled PT to work on deficits, improve quality of life, and return to prior level of function. Pt would also benefit from an MRI of the lumbar spine to rule in/out HNP. Plan of Care Interventions Electrical Stimulation,Gait Training,Hot Pack/Cold Pack,Manual Therapy,Neuro Re-education,Patient/ Caregiver Education,Therapeutic Activities, Therapeutic Exercise PT Services Indicated Yes Treatment Frequency and 3x a week for 12 visits Duration These treatments will address the objective and functional deficits as defined above. The patient will be advanced safely and appropriately in order for the patient to progress towards his/her prior level of function. Additional exercises will be introduced and as well as a comprehensive home exercise program upon discharge, if needed, ?to ensure carryover of functional gains achieved in the clinic. This treatment plan has been reviewed and agreement upon by the patient.
== END 2025-02-10 23:59 | disposition home or self-care (01) ==
LOC: CHSPT 07:53
PROVIDERS: Visit Provider Family Medicine
DX: M25.551 Pain in right hip (principal); M54.9 Dorsalgia, unspecified
CPT/HCPCS: 97014; 97110; 97140; 97162; G0283

== ENCOUNTER 2024-12-12 08:21 | Outpatient (CLI) | payer MEDICARE, MEDICAID, SELFPAY ==
--- NOTE | ~2024-12-12 | MR_ITS ---
EXAMINATION: MR hip RT wo con DATE: 12/12/2024 09:10 INDICATION: Low back pain and right hip pain post fall 2 weeks prior TECHNIQUE: Magnetic resonance imaging (MRI) of the right hip was performed without intravenous contr ast. Sequences included full-field axial PD-weighted FS FSE and T1-weighted FSE, coronal of the pelvi s with PD-weighted FS FSE, small field of view of the right hip with axial PD-weighted FS FSE, sagit javon PD-weighted FS FSE and coronal PD weighted FS FSE. Oblique axial and sagittal FIESTA ASPIR sequen sarath were also obtained. COMPARISON: None FINDINGS: Bones/labrum/cartilage: Alignment is normal. No fracture, avascular necrosis or pathologic marrow replacing process. The ant erosuperior to superolateral right acetabular labrum is diminutive suggesting chronic degeneration. A rticular cartilage is normal. Fluid: Symmetric physiologic amount of fluid within both hip joints. Soft tissues: Normal and symmetric muscle bulk and signal in the pelvis and visualized proximal thighs. Mild increa sed fluid signal overlying the right greater trochanter which could be consistent with mild trochante rhett bursitis although differential includes contusion related to reported recent prior foraminal. The iliopsoas, gluteal and proximal hamstring tendons are normal. Mild diverticulosis along the sigmoid colon without adjacent comparison to suggest diverticulitis. Limited evaluation of visceral organs of the pelvis is otherwise unremarkable. Small fat-containing right inguinal hernia. No pathologically enlarged pelvic/inguinal lymphadenopathy. IMPRESSION: 1. Mild increased fluid signal overlying the right greater trochanter which could represent either mi ld trochanteric bursitis or contusion related to reported recent fall. No fracture or other acute oss eous abnormality. 2. Small fat-containing right inguinal hernia. 3. Mild sigmoid diverticulosis. Reviewed, dictated and finalized at location A. IMPRESSION: 1. Mild increased fluid signal overlying the right greater trochanter which cou ld represent either mild trochanteric bursitis or contusion related to reported recent fall. No fracture or other acute osseous abnormality. 2. Small fat-containing right inguinal hernia. 3. Mild sigmoid diverticulosis.
--- OUTSIDE RECORDS SUMMARY | 2024-12-12 08:24 | XMS_ITS | Clinical Summary ---
Author Organization [facility] Address [address] [place] [address] Care Team Providers Care Instructor Ballroom Dancing Name Role Phone Kyrie Goldsmith MD Primary [...] cm (5' 3 ) 08/22/2021 10:10 AM ENGINEERING SUPPLIES SALES Body Mass Index 39.6 08/22/2021 10:10 AM ENGINEERING SUPPLIES SALES Plan of Treatment Health Maintenance Due Date Last Done Comments Cervical Cancer Screening Pa p Smear (Age 30 to 64) Every 3 Years 1968 Colorectal Cancer Screening Colonoscopy (10 Years) 1968 Annual Physical 12/10/1971 Hepatitis C 1986 Hepatitis B Vaccines (1 of 3 - 19+ 3-dose series) 12/10/1987 Pneumococcal Vaccine: 50+ Years (1 of 2 - PCV) 12/10/1987 Cervical Cancer Screening Pa p with HPV Testing (Age 30 to 64) Every 5 Years 1998 Cervical Cancer Screening wi th HPV 1998 Mammogram Screening 2008 Zoster Vaccines (1 of 2) 2018 COVID-19 Vaccine (3 - 2023-2 5 season) 2024 12/27/2020, 11/29/2020 DTaP, Tdap and Td Vaccines ( 2 [...] this topic Insurance MEDICAID MEDICARE Care Teams Instructor Ballroom Dancing Relationship Specialty Start Date End Date Kyrie Goldsmith MD [address] [place] [phone] PCP - General FAMILY PRACTICE 05/14/19
== END 2024-12-12 08:22 | disposition home or self-care (01) ==
LOC: CHSIMG 08:22
PROVIDERS: PCP Family Medicine; Visit Provider Family Medicine
DX: M25.551 Pain in right hip (principal); K40.90 Unilateral inguinal hernia, without obstruction or gangrene, not specified as recurrent; K57.30 Diverticulosis of large intestine without perforation or abscess without bleeding
CPT/HCPCS: 73721

== ENCOUNTER 2025-01-03 15:59 | Emergency (ER) | payer MEDICARE, MEDICAID, SELFPAY ==
--- NOTE | ~2025-01-03 | XR_ITS ---
CHEST RADIOGRAPH CLINICAL HISTORY: dyspnea, lower extremity swelling . COMPARISON: 08/21/2019 TECHNIQUE: Single portable view of the chest. FINDINGS The cardiomediastinal silhouette is unremarkable. The lungs are clear. Visualized osseous structures and soft tissues are unremarkable. IMPRESSION: No focal infiltrate or effusion. Reviewed, dictated and finalized at location A.
--- NOTE | ~2025-01-03 | XR_ITS ---
HISTORY: Fall, Low back pain x1 month; worsening COMPARISON: 02/21/2022 TECHNIQUE: 2 view lumbar spine. FINDINGS: Lumbar vertebral bodies are normally aligned. There are 5 non-rib bearing lumbar vertebral bodies. Disc spaces and vertebral body heights are well maintained. There are no lytic or sclerotic lesions. Paraspinal soft tissues are unremarkable Multiple anterior osteophytes, unchanged from prior. IMPRESSION: Trace degenerative disease, without acute fracture. Reviewed, dictated and finalized at location A.
[2025-01-03 15:59] VITALS: BP 160/65; PULSE 95; RESP 20; TEMP 36.8; O2SAT 96
--- OUTSIDE RECORDS SUMMARY | 2025-01-03 16:01 | XMS_ITS | Clinical Summary ---
Author Organization [facility] Address [address] [place] [address] Care Team Providers Care Transplant Nurse Name Role Phone Kyrie Goldsmith MD Primary Care Provider [phone] Allergies Active Allergy Reactions Criticality Noted Date [...] cm (5' 3 ) 08/22/2021 10:10 AM OFFICE PROFESSIONALS Body Mass Index 39.6 08/22/2021 10:10 AM [employer] Plan of Treatment Health Maintenance Due Date [...] this topic Insurance MEDICAID MEDICARE Care Teams Transplant Nurse Relationship Specialty Start Date End Date Kyrie Goldsmith MD [address] [place] [id number] PCP - General FAMILY PRACTICE 05/14/19
--- NOTE | 2025-01-03 16:22 | ECG_ITS ---
Test Date: 2025-01-03 16:30:51 Measurements Intervals [place] Rate: 91 P: 56 PA: 161 QRS: 4 QRSD: 97 T: 39 QT: 364 QTc: 450 Interpretive Statements SINUS RHYTHM LOW QRS VOLTAGE IN PRECORDIAL LEADS [QRS DEFLECTION < 1.0 mV IN CHEST LEADS] PATTERN CONSISTENT WITH PULMONARY DISEASE No previous ECG available for comparison Electronically Signed On 01-04-2025 10:42:08 CDT by Edinson Malave M.D.
--- NOTE | 2025-01-03 16:24 | ED_ITS ---
HPI - General Adult General Chief complaint: Back Pain/Injury Stated complaint: back pain History of Present Illness HPI narrative: Layne is a 54F with a PMH of fibromyalgia, Asthma, GERD and RA that presented to the ED with a few concerns. She has chronic back pain that has been getting worse. She cut her grass and it flared up her asthma and made her pain worse. By the time I spoke with her her breathing improved. However, her most concerning sympton is multiple days of lower extremity edema that will not go away. No CP or lightheadedness. No loss of bowel or bladder control, no weakness or foot drop reported. Related Data Home Medications Medication Instructions Recorded Confirmed Last Taken Type albuterol sulfate 2.5 mg/3 mL 2.5 mg inhalation Q4H PRN 08/21/19 09/07/23 09/06/23 History (0.083 %) solution for nebulization Shortness Of Breath albuterol sulfate 90 mcg/actuation 2 puff inhalation QID PRN 08/21/19 09/07/23 09/06/23 History aerosol inhaler (ProAir HFA) Shortness Of Breath budesonide-formoterol HFA 160 2 puff inhalation Q12H 08/21/19 09/07/23 09/06/23 History mcg-4.5 mcg/actuation aerosol inhaler (Symbicort) famotidine 20 mg tablet 20 mg PO BID 08/21/19 09/07/23 09/06/23 History gabapentin 300 mg capsule 900 mg PO TID 08/21/19 09/07/23 09/06/23 History sucralfate 1 gram tablet (Carafate) 1 g PO QID 08/21/19 09/07/23 09/06/23 History Allergies Allergy/AdvReac Type Severity Reaction Status Date / Time cefaclor (From Ceclor) Allergy Rash Verified 01/24/22 15:13 diazepam (From Valium) Allergy Agitated Verified 01/24/22 15:13 duloxetine (From Cymbalta) Allergy Rash Verified 01/24/22 15:13 Review of Systems 2 Review of Systems: All systems reviewed & are unremarkable except as noted in HPI and below PMFSH Past Medical History Medical History Finger amputation, no complication Fibromyalgia Glomus tumor Asthma GERD (gastroesophageal reflux disease) Rheumatoid arthritis Exam 2 Const: General: cooperative, healthy appearing, comfortable, no acute distress, well developed, alert, awake and Physically active O rientation/consciousness: oriented to person, oriented to place and oriented to time HENMT: Head: normal to inspection, normocephalic and atraumatic Ears: h earing grossly normal bilaterally and external ears normal Face/Nose/Sinus: N ormal external nose present Eyes: General: appearance normal, both eyes and all related structures P eriorbital: periorbital findings normal Sclera: sclerae normal Pupils: E qual, round and reactive pupils present Neck: Neck: normal visual inspection Chest: Chest palpation & inspection: normal inspection of the chest Resp: Effort & Inspection: normal respiratory effort, able to speak in complete sentences and no respiratory distress Other: Bibasilar crackles Cardio: Jugular venous distension: no JVD Rate: regular rate Rhythm: r egular rhythm GI: Inspection: normal to inspection GI Palp: Yes Soft to palpation A uscultation: normal bowel sounds Back/Spine/Pelvis: Other: Decreased ROM in the lumbar spine. Skin: General skin exam: normal color and no rashes or lesions noted Neuro: General: oriented to person, oriented to place and oriented to time Cranial nerves: Yes Equal, round and reactive pupils present Extrem: General: normal to inspection Other: 3+ pitting edema bilaterally up to the m id ham Course Course Emergency Course: Ordered labs, EKG, CXR. Declined pain meds and breathing treatment as she just took her inhaler. EKG showed NSR with a rate of 91, normal rhythm, possible LAD but no ST elevation/depression CHEST RADIOGRAPH CLINICAL HISTORY: dyspnea, lower extremity swelling . COMPARISON: 08/21/2019 TECHNIQUE: Single portable view of the chest. FINDINGS The cardiomediastinal silhouette is unremarkable. The lungs are clear. Visualized osseous structures and soft tissues are unremarkable. IMPRESSION: No focal infiltrate or effusion. HISTORY: Fall, Low back pain x1 month; worsening COMPARISON: 02/21/2022 TECHNIQUE: 2 view lumbar spine. FINDINGS: Lumbar vertebral bodies are normally aligned. There are 5 non-rib bearing lumbar vertebral bodies. Disc spaces and vertebral body heights are well maintained. There are no lytic or sclerotic lesions. Paraspinal soft tissues are unremarkable Multiple anterior osteophytes, unchanged from prior. IMPRESSION: Trace degenerative disease, without acute fracture. Labs showed severe anemia and a unit of PRBC was ordered. Chemistries showed a mild BRIGIDO, but trop and BNP were WNL. She was not willing to wait for the blood as it would be several hours and signed out AMA. I personally explained to the patient the risks and consequences involved in leaving this facility at this time. The benefits of continued treatment/hospitalization and the alternatives. I have not identified any psychosis, drugs, mental illness, or medical illness that alters decision-making capacity. Vital Signs Vital signs: Vital Signs Temperature 98.3 F 01/03/25 15:59 Pulse Rate 95 01/03/25 15:59 Respiratory Rate 20 01/03/25 15:59 Blood Pressure 160/65 H 01/03/25 15:59 Pulse Oximetry 96 01/03/25 15:59 Oxygen Delivery Room Air 01/03/25 15:59 Temperature 98.3 F 01/03/25 15:59 Pulse Rate 95 01/03/25 15:59 Respiratory Rate 20 01/03/25 15:59 Blood Pressure 160/65 H 01/03/25 15:59 Pulse Oximetry 96 01/03/25 15:59 Oxygen Delivery Room Air 01/03/25 15:59 Medical Decision Making Vital Signs Vital Signs: Vital Signs Temperature 98.3 F 01/03/25 15:59 Pulse Rate 95 01/03/25 15:59 Respiratory Rate 20 01/03/25 15:59 Blood Pressure 160/65 H 01/03/25 15:59 Pulse Oximetry 96 01/03/25 15:59 Oxygen Delivery Room Air 01/03/25 15:59 Temperature 98.3 F 01/03/25 15:59 Pulse Rate 95 01/03/25 15:59 Respiratory Rate 01/03/25 15:59 Blood Pressure 160/65 H 01/03/25 15:59 Pulse Oximetry 96 01/03/25 15:59 Oxygen Delivery Room Air 01/03/25 15:59 Lab Data 01/03/25 16:59 01/03/25 16:59 Labs: Lab Results 01/03/25 Range/Units 16:59 WBC 7.7 (4.8-10.8) K/mm3 RBC 3.58 L (4.20-5.40) M/mm3 Hgb 6.6 L* (12.0-15.0) g/dL Hct 24.8 L (35.0-49.0) % MCV 69.3 L (78.0-102.0) fL MCH 18.4 L (27.0-31.0) pg MCHC 26.6 L (32-36) g/dL RDW 24.9 H (11.6-14.4) % Plt Count 341 (150-420) K/mm3 MPV 9.2 (9.2-11.8) fl Immature Gran % (Auto) 0.6 H (0.0-0.0) % Neut % (Auto) 66.8 (50.0-70.0) % Lymph % (Auto) 19.9 (18.0-42.0) % [place] % (Auto) 8.4 (2.0-11.0) % Eos % (Auto) 3.9 (1.0-6.0) % Baso % (Auto) 0.4 (0.0-1.0) % Lymph # (Auto) 1.53 (1.10-4.50) K/mm3 [place] # (Auto) 0.65 (0.10-0.90) K/mm3 Eos # (Auto) 0.30 (0.02-0.50) K/mm3 Baso # (Auto) 0.03 (0.00-0.10) K/mm3 Abs Immat Gran (auto) 0.05 H (0.00-0.00) K/mm3 Absolute Neuts (auto) 5.14 (1.70-7.20) K/mm3 Absolute Nucleated RBC 0.00 (0.00-0.00) K/mm3 Nucleated RBC % 0.0 (0-0.0) % PT Pending INR Pending Sodium Pending Potassium Pending Chloride Pending Carbon Dioxide Pending Anion Gap Pending BUN Pending Creatinine Pending Estim Creat Clear Calc Pending Estimated GFR Pending Glucose Pending Calculated Osmolality Pending Calcium Pending Total Bilirubin Pending AST Pending ALT Pending Alkaline Phosphatase Pending Troponin I Pending NT-Pro-B Natriuret Pep Pending Total Protein Pending Albumin Pending Discharge Plan Discharge Clinical Impression: Severe anemia Patient Disposition: Left Against Medical Advice Condition: Serious Patient Language: Occitan Prescriptions: No Action albuterol sulfate 2.5 mg /3 mL (0.083 %) Solution For Nebulization 2.5 mg INHALATION Q4H PRN (Reason: Shortness Of Breath) sucralfate [Carafate] 1 gram Tablet 1 g PO QID famotidine 20 mg Tablet 20 mg PO BID gabapentin 300 mg Capsule 900 mg PO TID albuterol sulfate [ProAir HFA] 90 mcg/actuation Hfa Aerosol Inhaler 2 puff INHALATION QID PRN (Reason: Shortness Of Breath) budesonide-formoterol [Symbicort] 160-4.5 mcg/actuation Hfa Aerosol Inhaler 2 puff INHALATION Q12H omeprazole 20 mg capsule,delayed release(DR/EC) 20 mg PO DAILY Qty: 30 0RF ibuprofen 600 mg tablet 600 mg PO Q6H PRN (Reason: pain) Qty: 20 0RF Follow-up/Referrals: Rupal,MD Kyrie [Primary Care Provider] -
--- NOTE | 2025-01-03 16:45 | PC.NURSE ---
lab staff javed informed of labs ordered at 1630
[2025-01-03 17:05] LABS: Basophils Absolute Auto 0.03 K/mm3 (0.00-0.10); Basophils Percent Auto 0.4 % (0.0-1.0); Eosinophils Percent Auto 3.9 % (1.0-6.0); Hematocrit 24.8 % (35.0-49.0); Immature Granulocyte Absolute 0.05 K/mm3 (0.00-0.00); Immature Granulocyte Percent A 0.6 % (0.0-0.0); Lymphocytes Absolute Auto 1.53 K/mm3 (1.10-4.50); Lymphocytes Percent Auto 19.9 % (18.0-42.0); Mean Corpuscular HGB Conc 26.6 g/dL (32-36); Mean Corpuscular Hemoglobin 18.4 pg (27.0-31.0); Mean Corpuscular Volume 69.3 fL (78.0-102.0); Mean Platelet Volume 9.2 fl (9.2-11.8); Monocytes Absolute Auto 0.65 K/mm3 (0.10-0.90); Monocytes Percent Auto 8.4 % (2.0-11.0); Neutrophils Absolute Auto 5.14 K/mm3 (1.70-7.20); Neutrophils Percent Auto 66.8 % (50.0-70.0); Platelet Count Result 341 K/mm3 (150-420); Red Blood Count 3.58 M/mm3 (4.20-5.40); Red Cell Distribution Width 24.9 % (11.6-14.4); White Blood Count 7.7 K/mm3 (4.8-10.8)
[2025-01-03 17:14] LABS: Hemoglobin 6.6 g/dL (12.0-15.0)
[2025-01-03 17:16] LABS: INR 0.9; Prothrombin Time 10.4 Seconds (9.50-12.1)
--- NOTE | 2025-01-03 17:19 | PC.NURSE ---
pt states has iron issues. has had low hemoglobin with need for blood transfusions in the past x 2
[2025-01-03 17:27] LABS: Alanine Aminotransferase 29 U/L (14-59); Albumin Level 3.4 g/dL (3.4-5.0); Alkaline Phosphatase 57 U/L (46-116); Anion Gap 9 mmol/L (4-12); Aspartate Amino Transferase 15 U/L (15-37); Bilirubin,Total 0.3 mg/dL (0.00-1.00); Blood Urea Nitrogen 12 mg/dL (7-18); Calcium 8.8 mg/dL (8.5-10.1); Carbon Dioxide 29 mmol/L (21-32); Chloride 103 mmol/L (98-108); Estimated CRCL calculation 61 ml/min; Estimated Glomerular Filt Rate 55; Glucose 105 mg/dL (70-99); NT Pro B Type Natriuretic Pept 67 pg/mL (0-125); Osmolality Calculated 291 mOsm/kg (285-295); Potassium 3.7 mmol/L (3.5-5.1); Sodium 141 mmol/L (136-145); Total Protein 6.8 g/dL (6.4-8.2); Troponin I 5.6 ng/L (0.00-60.4)
[2025-01-03 17:32] VITALS: BP 129/69; PULSE 89; RESP 16; O2SAT 99
--- NOTE | 2025-01-03 17:41 | PC.NURSE ---
dr rucker in with pt discussing plan of care and need for transfusion of blood. pt states has antibodies in blood. explained type and cross will be completed. pt concerned about time to stay here, has friends car. will update when lab results completed.
--- NOTE | 2025-01-03 18:27 | PC.NURSE ---
pt not wanting iv started until she knows how long it will take to get her blood.
--- NOTE | 2025-01-03 19:16 | PC.NURSE ---
Dr Lim down to talk w/ pt about wait time for blood arrival will be about 3-4 hrs until able to give. Pt states she is unable to stay that long and will f/u w/ her PMD tomorrow. She states she can get the blood at her PMD office faster and she will f/u w/ him tomorrow morning. Pt signed AMA paperwork w/ this RN and Dr Lim witnessing. Pt ambulated steadily w/ cane from ER.
[2025-01-03 19:19] VITALS: BP 140/85; PULSE 85; RESP 18; TEMP 36.6; O2SAT 95
== END 2025-01-03 19:19 | disposition left against medical advice (07) ==
PROVIDERS: Emergency Provider Family Medicine; PCP Family Medicine
DX: D64.9 Anemia, unspecified (principal); J45.901 Unspecified asthma with (acute) exacerbation; R60.9 Edema, unspecified; M06.9 Rheumatoid arthritis, unspecified; M79.7 Fibromyalgia
CPT/HCPCS: 36415; 71045; 72100; 80053; 83880; 84484; 85025; 85610; 86850; 86880; 86900; 86901; 86902; 93005; 96360; 96361; 99284

== ENCOUNTER 2025-01-05 12:17 | Outpatient (RCR) | payer MEDICARE, MEDICAID, SELFPAY ==
--- NOTE | 2025-01-05 | CONSULT_PTH ---
PATIENT: Layne Padilla [id number] AGE/SX: 54/F ROOM: RE01/05/[address]: Lexus Wells, : 1970 BED: DIS: 04/05/2025 SPEC #: [id number] RECD: 01/05/25 17:38 STATUS: DELMY GARDNER #: [id number] FRANCISCO: 01/05/25 00:[address]: Rupal,Kyrie DEPT: [facility] Consult RECD BY: Tania Huerta MLT, ([facility] Tissues: A - Peripheral Smear Procedures: Hematology Consult
--- OUTSIDE RECORDS SUMMARY | 2025-01-05 12:25 | XMS_ITS | Clinical Summary ---
Author Organization [facility] Address [address] [place] [address] Care Team Providers Care Rural Route Carrier Name Role Phone Kyrie Goldsmith MD Primary [...] 9:03 AM CDT Height 160 cm (5' 3) 08/22/2021 10:10 AM NURSE COMPANION Body Mass Index 39.6 08/22/2021 10:10 AM NURSE COMPANION Plan of Treatment Health Maintenance Due Date [...] this topic Insurance MEDICAID MEDICARE Care Teams Rural Route Carrier Relationship Specialty Start Date End Date Kyrie Goldsmith MD [address] [place] [id number] PCP - General FAMILY PRACTICE 05/14/19
[2025-01-05 15:17] LABS: Hematocrit 25.6 % (35.0-49.0); Immature Granulocyte Percent A 0.4 % (0.0-0.0); Lymphocytes Absolute Auto 1.48 K/mm3 (1.10-4.50); Mean Corpuscular HGB Conc 26.6 g/dL (32-36); Mean Corpuscular Hemoglobin 18.6 pg (27.0-31.0); Mean Corpuscular Volume 69.9 fL (78.0-102.0); Nucleated Red Blood Cells Absolute Auto 0.00 K/mm3 (0.00-0.00); Nucleated Red Blood Cells Perc 0.0 % (0-0.0); Platelet Count Result 382 K/mm3 (150-420); Red Blood Count 3.66 M/mm3 (4.20-5.40); White Blood Count 7.0 K/mm3 (4.8-10.8)
[2025-01-05 15:28] LABS: Hemoglobin 6.8 g/dL (12.0-15.0)
[2025-01-06] VITALS (7 sets, daily range): BP systolic 105–131; BP diastolic 46–86; PULSE 84–96; RESP 18–20; TEMP 36.2–36.5; O2SAT 96–100
[2025-01-06] MEDS: SODIUM CHLORIDE 0.9% IV 250 ML 10 ML IVPB (16:00)
[2025-01-06 19:08] LABS: Hematocrit 31.0 % (35.0-49.0); Hemoglobin 8.6 g/dL (12.0-15.0)
== END 2025-04-05 23:59 | disposition home or self-care (01) ==
LOC: CHSTREATRM 12:17
PROVIDERS: PCP Family Medicine; Visit Provider Family Medicine
DX: D64.9 Anemia, unspecified (principal)
CPT/HCPCS: 36415; 36430; 85014; 85018; 85025; 86870; 86880; 86902; 86904; 86905; 86906; 86920; 86970; J7050; P9016

== ENCOUNTER 2025-02-12 08:14 | Outpatient (RCR) | payer MEDICARE, MEDICAID, SELFPAY ==
--- NOTE | 2025-03-05 07:46 | OPREHPOC ---
Outpatient Therapy Plan of Care This is a Multidisciplinary Plan of Care that may contain components documented by all disciplines (PT, OT, and ST.) PT Problem 1 PT Problem #1 Knowledge Deficit PT Goal 1 Goal / Goal Update 1. independent and compliant with HEP Target Visit 6 Progress Met PT Goal 2 Goal / Goal Update continue Target Visit 6 PT Problem 2 PT Problem #2 Pain PT Goal 1 Goal / Goal Update 1. decrease pain at worst in the R hip in the last week to 3/10 or less 2. decrease pain at worst in the lower back in the last week to 4/10 or less Target Visit 12 Progress Not Met PT Goal 2 Goal / Goal Update continue Target Visit 12 Progress Not Met PT Problem 3 PT Problem #3 Impaired Range of Motion PT Goal 1 Goal / Goal Update 1. improve lumbar flexion to knees or better without pain 2. improve lumbar extension to 10 degrees or better without pain 3. 100 degrees passive R hip flex 4. patient to tolerate 30 degrees of passive R hip IR and ER without pain Target Visit 12 Progress Not Met PT Goal 2 Goal / Goal Update continue Target Visit 12 Progress Not Met PT Problem 4 PT Problem #4 Impaired Strength PT Goal 1 Goal / Goal Update 1. 4/5 or better bilateral hip strength overall 2. 5/5 bilateral knee strength 3. 5/5 bilateral ankle DF Target Visit 12 Progress Not Met PT Goal 2 Goal / Goal Update continue Target Visit 12 Progress Not Met PT Problem 5 PT Problem #5 Impaired Functional Mobility PT Goal 1 Goal / Goal Update 1. patient to return to ambulation with reciprocal fluid mechanics with use of cane. not met 2. patient to complete 6 minutes walk test without rest for 800ft or more. not met 3. patient to tolerate 30 minutes or more of standing without increased lower back pain. not met Target Visit 12 Progress Not Met PT Goal 2 Goal / Goal Update 4. pt to report less than 30% perceived disability on the Oswestry. not met Target Visit 12 Progress Not Met
--- NOTE | 2025-03-05 07:46 | PTOPDC ---
Assessment and note entered by JT File, PT Evaluation Information Assessment Status Discharge ICD-10 Condition Codes (PT) Pain in right hip M25.551 Other ICD-10 Condition Codes ( M54.9 PT) Onset 10/17/24 Subjective Information patient reports she continues to have pain in the lower back, and is unable to lift anything or hold any weight away from her body. she had an MRI that showed no bulged or herniated discs, but moderate or greater facet arthropathy. Reported Pain Level Pain Score 6: Self Report Assessment PT Clinical Summary mrs. gutierrez presents to skilled PT for re- evaluation of her lower back. she has had an mri of the lumbar spine during her last bout of therapy here which confirms no discoid injury. however, she has not improved, and has not made any progress towards goals. she continues to have flexion category pain, and inability to perform daily functional activities due to her pain. she will DC skilled PT and plan to return to PCP with recommendation to seek specialty care. Plan of Care PT Services Indicated Yes
== END 2025-03-05 14:23 | disposition home or self-care (01) ==
LOC: CHSPT 08:14
PROVIDERS: Visit Provider Family Medicine
DX: M25.551 Pain in right hip (principal); M54.9 Dorsalgia, unspecified
CPT/HCPCS: 97110; 97530

== ENCOUNTER 2025-02-18 13:47 | Outpatient (CLI) | payer MEDICARE, MEDICAID, SELFPAY ==
--- NOTE | ~2025-02-18 | MR_ITS ---
MRI of the lumbar spine Clinical History: Back pain Technique: Axial T2-weighted images, and sagittal T1-weighted, T2-weighted, and T2 fat-sat images wer e acquired. COMPARISON: 06/29/2022 Findings: There is no fracture or subluxation of lumbar spine. Vertebral bodies maintain normal heigh t and alignment. No bone marrow signal abnormality seen. No significant disc bulge or herniation seen at any lumbar level. No spinal canal stenosis or neural foraminal narrowing identified. There is moderate due to advanced facet arthropathy at L3-L4, L4-L5, L5-S1. Paravertebral soft tissues are unremarkable. Impression: Facet joint degenerative changes, as above. No spinal canal stenosis or neural foraminal narrowing. N o fracture or subluxation. Reviewed, dictated and finalized at location . Impression: Facet joint degenerative changes, as above. No spinal canal stenosis or neural foraminal narrowing. No fracture or subluxation.
--- OUTSIDE RECORDS SUMMARY | 2025-02-18 13:49 | XMS_ITS | Clinical Summary ---
Author Organization [facility] Address [address] [place] [address] Care Team Providers Care Package Maker Name Role Phone Kyrie Goldsmith MD [...] 160 cm (5' 3) 08/22/2021 10:10 AM STOVE TENDER Body Mass Index 39.6 08/22/2021 10:10 AM STOVE TENDER Plan of Treatment Health Maintenance Due Date [...] this topic Insurance MEDICAID MEDICARE Care Teams Package Maker Relationship Specialty Start Date End Date Kyrie Goldsmith MD [address] [place] [phone] PCP - General FAMILY PRACTICE 05/14/19
== END 2025-02-18 13:48 | disposition home or self-care (01) ==
LOC: CHSIMG 13:48
PROVIDERS: PCP Family Medicine; Visit Provider Family Medicine
DX: M54.9 Dorsalgia, unspecified (principal)
CPT/HCPCS: 72148

== ENCOUNTER 2025-03-15 20:20 | Emergency (ER) | payer MEDICARE, MEDICAID, SELFPAY ==
[2025-03-15 20:20] VITALS: BP 130/91; PULSE 80; RESP 20; TEMP 36.8; O2SAT 94
--- OUTSIDE RECORDS SUMMARY | 2025-03-15 20:22 | XMS_ITS | Clinical Summary ---
Author Organization [facility] Address [address] [place] [address] Care Team Providers Care Big Machine Consultant Name Role Phone Kyrie Goldsmith MD Primary Care Provider [phone] Allergies Active Allergy Reactions Criticality Noted Date [...] 160 cm (5' 3) 08/22/2021 10:10 AM DRY PAN OPERATOR Body Mass Index 39.6 08/22/2021 10:10 AM DRY PAN OPERATOR Plan of Treatment Health Maintenance Due Date [...] this topic Insurance MEDICAID MEDICARE Care Teams Big Machine Consultant Relationship Specialty Start Date End Date Kyrie Goldsmith MD [address] [place] [phone] PCP - General FAMILY PRACTICE 05/14/19
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
--- OUTSIDE RECORDS SUMMARY | 2025-03-15 20:45 | XMS_ITS | Clinical Summary ---
Author Organization [facility] Address [address] [place] [address] Care Team Providers Care Mill Feeder Name Role Phone yKrie Goldsmith MD Primary Care Provider Allergies Active [...] 160 cm (5' 3) 08/22/2021 10:10 AM SILO MAN Body Mass Index 39.6 08/22/2021 10:10 AM SILO MAN Plan of Treatment Health Maintenance Due Date [...] this topic Insurance MEDICAID MEDICARE Care Teams Mill Feeder Relationship Specialty Start Date End Date Kyrie Goldsmith MD [address] [place] [address] [phone] PCP - General FAMILY PRACTICE 05/14/19
== END 2025-03-15 20:53 | disposition home or self-care (01) ==
PROVIDERS: Emergency Provider Emergency Medicine; PCP Family Medicine
DX: S61.412A Laceration without foreign body of left hand, initial encounter (principal); W26.0XXA Contact with knife, initial encounter
CPT/HCPCS: 12001; 99282

== ENCOUNTER 2025-06-14 15:40 | Outpatient (CLI) | payer MEDICARE, MEDICAID, SELFPAY ==
--- NOTE | ~2025-06-14 | XR_ITS ---
EXAMINATION: XR shoulder LT min 2V, 06/14/2025 15:50 CDT HISTORY: L SHOULDER PAIN COMPARISON: No comparisons available. Findings: No acute fracture or malalignment. No significant degenerative changes. Soft tissues unremarkable. Impression: No acute fracture or malalignment. Reviewed, dictated and finalized at location P. Impression: No acute fracture or malalignment.
[2025-06-14 15:56] LABS: Hematocrit 42.2 % (35.0-49.0); Hemoglobin 13.9 g/dL (12.0-15.0); Immature Granulocyte Percent A 0.4 % (0.0-0.0); Lymphocytes Absolute Auto 1.91 K/mm3 (1.10-4.50); Mean Corpuscular HGB Conc 32.9 g/dL (32-36); Mean Corpuscular Hemoglobin 28.6 pg (27.0-31.0); Mean Corpuscular Volume 86.8 fL (78.0-102.0); Nucleated Red Blood Cells Absolute Auto 0.00 K/mm3 (0.00-0.00); Nucleated Red Blood Cells Perc 0.0 % (0-0.0); Platelet Count Result 293 K/mm3 (150-420); Red Blood Count 4.86 M/mm3 (4.20-5.40); White Blood Count 7.8 K/mm3 (4.8-10.8)
[2025-06-14 16:09] LABS: Alanine Aminotransferase 17 U/L (6-35); Albumin Level 4.5 g/dL (3.5-5.1); Alkaline Phosphatase 49 U/L (38-126); Anion Gap 9 mmol/L (4-12); Aspartate Amino Transferase 24 U/L (14-36); Bilirubin,Total 0.4 mg/dL (0.2-1.3); Blood Urea Nitrogen 13 mg/dL (7-17); Calcium 9.7 mg/dL (8.4-10.2); Carbon Dioxide 27 mmol/L (22-30); Chloride 106 mmol/L (98-107); Cholesterol 171 mg/dL (0-200); Estimated Glomerular Filt Rate 52; Glucose 102 mg/dL (65-110); HDL Direct 54 mg/dL; Iron 71 ug/dL (37-170); Osmolality Calculated 294 mOsm/kg (285-295); Potassium 4.2 mmol/L (3.4-5.0); Sodium 142 mmol/L (137-145); Total Protein 8.4 g/dL (6.3-8.2); Triglycerides 176 mg/dL (<150)
[2025-06-14 16:19] LABS: Percent Iron Saturation 20 % (20-50)
--- OUTSIDE RECORDS SUMMARY | 2025-06-14 17:03 | XMS_ITS | Clinical Summary ---
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 Body Mass Index 39.6 08/22/2021 10:10 AM WORKERS COMPENSATION ATTORNEY Plan of Treatment Health Maintenance Due Date [...] Vaccines (1 of 2) 2018 COVID-19 Vaccine ( - 2024-2 6 season) 2025 12/27/2020, 11/29/2020 Influenza Adult (#1) 2025 DTaP, Tdap and Td Vaccines ( 2 - Td or Tdap) 03/10/2031 03/10/2021 Hepatitis A Vaccines Aged Out No long er eligible based on patient's age to complete this topic Meningococcal B Vaccine Aged Out No l onger eligible based on patient's age to complete this topic Meningococcal Vaccine Aged Out No beto genia eligible based on patient's age to complete this topic RSV Immunizations Under 20 Months Aged Out No longer eligible b ased on patient's age to complete this topic Insurance MEDICAID MEDICARE Care Teams Yardage Control Clerk Relationship Specialty Start Date End Date Kyrie Goldsmith MD [address] [place] [phone] PCP - General FAMILY PRACTICE 05/14/19
== END 2025-06-14 15:41 | disposition home or self-care (01) ==
LOC: CHSLAB 15:43
PROVIDERS: PCP Family Medicine; Visit Provider Family Medicine
DX: M25.512 Pain in left shoulder (principal); D50.9 Iron deficiency anemia, unspecified; E78.00 Pure hypercholesterolemia, unspecified
CPT/HCPCS: 36415; 73030; 80053; 80061; 83540; 83550; 85025